=== PATIENT | male | born 1960 | race Caucasian/White ===

== ENCOUNTER 2022-12-05 20:41 | Inpatient (IN) | payer MEDICARE, MEDICAID, SELFPAY ==
--- NOTE | ~2022-12-05 | CT_ITS ---
EXAMINATION: CT CHEST WITHOUT CONTRAST CT ABDOMEN AND PELVIS WITH CONTRAST CLINICAL INFORMATION: Short of breath. Distended abdomen. COMPARISON: None. TECHNIQUE: Multidetector volumetric imaging was performed through the chest without contrast. Multidetector volumetric imaging of the abdomen and pelvis was then performed after administration of 85 mL of Omnipaque 350 IV contrast. Sagittal and coronal reformatted images were obtained on the technologist's workstation. Axial MIP volume rendering provided. This CT examination was performed using dose optimization techniques as appropriate, variously including the following: *Automated exposure control *Adjustment of mA and/or kV according to patient size (this includes techniques or standardized protocols for targeted exams where dose is matched to indication/reason for exam; i.e. extremities or head) *Use of iterative reconstruction technique DLP: 887 mGy-cm. FINDINGS: CHEST: Lungs: The central airways are patent. Small right pleural effusion. Dependent opacity at the left base. Suture line in the lingula. No pneumothorax. Mediastinum: The heart is of enlarged. There is no pericardial effusion. Dilated main pulmonary artery measures 4.1 cm transverse. No hilar or mediastinal lymphadenopathy. Coronary Artery Calcification: Mild. Chest Wall/Axilla: No lymphadenopathy. No chest wall mass. Mild anasarca. ABDOMEN/PELVIS: Liver, Gallbladder, Biliary Tree: The liver is normal in size, shape, and attenuation. No focal hepatic lesion or biliary ductal dilatation is present. The gallbladder is unremarkable with no evidence of radiopaque gallstones, gallbladder wall thickening, or pericholecystic inflammatory changes. Pancreas: Moderate atrophy with no focal abnormality. Spleen: Unremarkable. Adrenal Glands: Unremarkable. Kidneys and Ureters: The kidneys are normal in size, shape, and attenuation. No hydronephrosis, hydroureter or calculi seen. Mild symmetric perinephric stranding. Bladder: Unremarkable. Gastrointestinal Tract: The stomach and small bowel appear unremarkable. No dilated loops of bowel or evidence of obstruction. No diverticulosis. No colonic wall thickening or adjacent inflammatory changes. No free air or free fluid. The appendix is unremarkable. Abdominal Wall: No hernia is demonstrated. Mild anasarca. Lymphovascular Structures: Lymph nodes: Normal. Vascular: Normal caliber aorta with mild atherosclerotic calcification. Pelvic Viscera: The prostate and seminal vesicles are unremarkable. OSSEOUS STRUCTURES: No suspicious sclerotic or lytic bone lesions are identified. Mild degenerative changes of the spine, particularly at the lower lumbar spine. Mild degenerative change in both hips. Chronic osseous fusion involving the lateral aspect of the left third, fourth, and fifth ribs. CT/CT abdomen pelvis w IV con IMPRESSION: 1. No acute findings in the chest, abdomen, or pelvis. 2. Small right pleural effusion. Dependent opacity at the left base may represent atelectasis. 3. Cardiomegaly. Dilated main pulmonary artery suggestive of pulmonary artery hypertension.
--- NOTE | ~2022-12-05 | XR_ITS ---
EXAMINATION: XR CHEST CLINICAL INFORMATION: Shortness of breath COMPARISON: None available. TECHNIQUE: Frontal view of the chest was obtained. FINDINGS: Surgical sutures overlying the left midlung and suture overlying the left upper cardiac border. AP film but cardiac enlargement is suspected. Ill-definition of the hilar structures with opacities radiating into the lung wilkins. Findings would be consistent with vascular congestion/early CHF No significant effusion. XR/XR chest 1V IMPRESSION: No films to compare. Findings may well be consistent with early CHF
[2022-12-05 21:06] VITALS: BP 193/108; PULSE 107; RESP 22; TEMP 36.6; O2SAT 97; BMI 29.0
--- NOTE | 2022-12-05 21:11 | ECG_ITS ---
Test Reason : SOB Blood Pressure : / mmHG Vent. Rate : 091 BPM Atrial Rate : 091 BPM P-R Int : 160 ms QRS Dur : 104 ms QT Int : 384 ms P-R-T Axes : 079 -67 075 degrees QTc Int : 472 ms Normal sinus rhythm Left anterior fascicular block Minimal voltage criteria for LVH, may be normal variant ( [place] product ) Abnormal ECG No previous ECGs available Referred By: Generic ED Physician Electronically Signed By:EDUIN SAMANO MD
[2022-12-05 21:30] LABS: MANUAL DIFF FLAG NO
[2022-12-05 21:35] LABS: Basophils Percent Auto 0.3 % (0-2); Eosinophils Absolute Auto 0.2 X10*3/uL (0.0-0.4); Eosinophils Percent Auto 2.8 % (0-4); Hematocrit 37.7 % (42.0-52.0); Hemoglobin 12.5 g/dl (14.0-18.0); Imm Gran Abs Auto 0.02 X10*3/uL (0.00-0.03); Imm Gran Pct Auto 0.3 % (0.0-0.4); Lymphocytes Absolute Auto 1.5 X10*3/uL (1.2-4.9); Lymphocytes Percent Auto 19.8 % (20-40); Mean Corpuscular HGB Conc 33.2 g/dl (31.0-36.0); Mean Corpuscular Hemoglobin 30.3 pg (27.0-33.0); Mean Corpuscular Volume 91.5 fL (80.0-98.0); Monocytes Absolute Auto 0.5 X10*3/uL (0.1-1.2); Monocytes Percent Auto 6.6 % (2-11); Neutrophils Absolute Auto 5.2 x10*3/uL (2.0-8.3); Neutrophils Percent Auto 70.2 % (45-73); Platelet Count 161 X10*3/uL (160-400); Red Blood Count 4.12 X10*6/uL (4.60-5.80); Red Cell Distribution Width 13.3 % (11.0-16.0); White Blood Count 7.4 X10*3/uL (4.8-10.8)
[2022-12-05 21:50] LABS: Alanine Aminotransferase 24 U/L (0-40); Albumin Level 4.1 g/dL (3.5-5.0); Alkaline Phosphatase 85 U/L (39-117); Anion Gap 13 (12-20); Aspartate Amino Transferase 19 U/L (5-37); Bilirubin Total 0.8 mg/dL (0.0-1.0); Blood Urea Nitrogen 13 mg/dL (9-16); Carbon Dioxide 28 mmol/L (22-29); Chloride 103 mmol/L (96-108); Creatinine Clr Calc Pharmacy 69.3; Estimated Glomerular Filt Rate > 60; Glucose Random 221 mg/dL (60-115); Potassium 4.4 mmol/L (3.3-5.1); Sodium 140 mmol/L (135-145); Total Protein 5.9 g/dL (6.5-8.0)
[2022-12-05 21:54] LABS: INTERNATIONAL NORM RATIO 1.2 (0.9-1.1); Prothrombin Time 13.3 SEC (10.0-13.1)
[2022-12-05 21:56] LABS: B Type Natriuretic Peptide 2472 pg/mL (<100)
[2022-12-05 21:57] LABS: Troponin-I High Sensitivity 34.9 ng/L (<3.5-35.0)
--- NOTE | 2022-12-05 22:45 | ED.GENADULT ---
HPI - General Adult General Chief complaint: General Medical Stated complaint: abd pain,roz. 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 moved from [place] a 1 year ago has not taken any medication for more than 6 months has not seen any PCP complaining of increased shortness of breath and leg swelling for last few days coughing with pinkish color phlegm for last few days denies any chest pain feel constipated on arrival blood pressure was 193/108 pulse rate 107 patient is supposed to be on gabapentin clonidine ,Lopressor, Cardizem hydrochlorothiazide and metformin Related Data Allergies Allergy/AdvReac Type Severity Reaction Status Date / Time No Known Allergies Allergy Verified 12/05/22 21:05 Review of Systems Review of Systems: Constitutional : No Weight loss, No Fever, No Chills ENT/Mouth : No sore throat, No Rhinorrhea Eyes: No Eye Pain, No Swelling Cardiovascular : No Chest Pain, no palpitations Respiratory : + Cough, + Sputum, + shortness of breath Gastrointestinal : no Nausea, No Vomiting, No Diarrhea, No abdominal Pain, no black stools Genitourinary : No Dysuria, No Urinary Frequency Musculoskeletal : No joint pain, No Myalgias, No Joint Swelling Skin : No Skin Lesions, No rash Neuro : No Weakness, No Numbness, No Dizziness, No Headache Psych : No Anxiety/Panic, No Depression Heme/Lymph: No Bruising, No Lymphadenopathy Endocrine : No Polyuria, No Polydipsia All other systems reviewed and are negative Yes all other systems are reviewed and are negative [facility] Social History Social History Patient Tobacco Use Status: Current everyday Tobacco user Smoked in Last 30 Days: Yes Use of substances other than those prescribed or required for medical reasons: No Advance Directives: No Advance Directives Information Provided: No Nutrition Risks: No Nutritional Risk Physical Exam ED Vital Signs: Vital Signs - 24 hr 12/05/22 21:06 12/05/22 23:14 12/05/22 23:32 Temperature 97.9 F Pulse Rate 107 H 70 68 Respiratory Rate 22 H 22 H 28 H Blood Pressure 193/108 H 194/112 H 158/98 H Pulse Oximetry 97 94 98 Oxygen Delivery Method Room Air Room Air Room Air 12/05/22 23:47 Temperature 98.2 F Pulse Rate 69 Respiratory Rate 14 Blood Pressure 149/99 H Pulse Oximetry 97 Oxygen Delivery Method Room Air BMI result Body Mass Index 29.0 Appearance: Alert. Oriented X3. No acute distress. Eyes: No pallor or icterus ENT: Pharynx normal. Oral Mucosa moist Neck: Normal inspection. Neck supple. CVS: Normal heart rate and rhythm. Pansystolic murmur at midsternal area? VSD, Pulses normal. Respiratory: Mild respiratory distress. Equal air entry bilateral, bilateral rales in the bases prolonged expiration with wheezing Abdomen: Soft gaseous distended and nontender. Bowel sounds are present, no mass palpable, no CVA tenderness Skin: Skin warm and dry. Normal skin color. Normal skin turgor. Extremities: 2+ lower extremity edema. No calf tenderness Neuro: Oriented X 3. No motor deficit. No sensory deficit.No cerebellar signs , cranial nerves II-XII intact Medications Administered Generic Name Dose Route Start Last Admin Trade Name Freq PRN Reason Stop Dose Admin Acetaminophen 650 mg 12/06/22 02:10 12/06/22 05:22 Acetaminophen 325 Mg Tablet PO 650 mg Q6H PRN Administration Pain, Mild (Pain Scale 1-3) Hydralazine HCl 5 mg 12/06/22 04:05 12/06/22 04:11 Hydralazine Hcl 20 Mg/Ml Vial IVPUSH 5 mg Q4H PRN Administration sbp>180,dbp1>100 Protocol Discontinued Medications Generic Name Dose Route Start Last Admin Trade Name Freq PRN Reason Stop Dose Admin Diphenhydramine HCl 50 mg 12/06/22 04:05 12/06/22 04:12 Diphenhydramine Hcl 25 Mg Capsule PO 12/06/22 04:06 50 mg ONCE ONE Administration Furosemide 40 mg 12/05/22 23:02 12/05/22 23:08 Furosemide 40 Mg/4 Ml Vial IVPUSH 12/05/22 23:03 40 mg ONCE ONE Administration Protocol Iohexol 85 ml 12/06/22 01:06 12/06/22 01:07 Iohexol 350 Mg/Ml 100 Ml Infus..Btl IV 12/06/22 01:07 85 ml ONCE ONE Administration Labetalol HCl 20 mg 12/05/22 23:02 12/05/22 23:09 Labetalol Hcl 100 Mg/20 Ml Vial IVPUSH 12/05/22 23:03 20 mg ONCE ONE Administration Labetalol HCl 10 mg 12/06/22 04:53 12/06/22 05:02 Labetalol Hcl 100 Mg/20 Ml Vial IVPUSH 12/06/22 04:54 10 mg ONCE ONE Administration Nitroglycerin 1 inch 12/05/22 23:33 12/05/22 23:38 Nitroglycerin 2 % Oint 1 Gm Packet TRANSDERMA 12/05/22 23:34 1 inch ONCE ONE Administration Medical Decision Making Medical Decision Making MDM Narrative: Patient noncompliant to medications with accelerated hypertension and CHF with history of substance abuse will admit patient for IV diuresis and blood pressure control Consult Healthcare Provider Management of the patient was discussed with: Hospitalist Lab Data MDM Lab Attestation statement: I reviewed the patient's lab results. 12/05/22 21:25 12/05/22 21:25 Labs: Lab Results 12/05/22 12/05/22 12/05/22 Range/Units 21:25 21:25 21:25 WBC 7.4 (4.8-10.8) X10*3/uL RBC 4.12 L (4.60-5.80) X10*6/uL Hgb 12.5 L (14.0-18.0) g/dl Hct 37.7 L (42.0-52.0) % MCV 91.5 (80.0-98.0) fL MCH 30.3 (27.0-33.0) pg MCHC 33.2 (31.0-36.0) g/dl RDW 13.3 (11.0-16.0) % Plt Count 161 (160-400) X10*3/uL MPV 12.0 (9.4-12.4) fL Immature Gran % (Auto) 0.3 (0.0-0.4) % Neut % (Auto) 70.2 (45-73) % Lymph % (Auto) 19.8 L (20-40) % [place] % (Auto) 6.6 (2-11) % Eos % (Auto) 2.8 (0-4) % Baso % (Auto) 0.3 (0-2) % Lymph # (Auto) 1.5 (1.2-4.9) X10*3/uL [place] # (Auto) 0.5 (0.1-1.2) X10*3/uL Eos # (Auto) 0.2 (0.0-0.4) X10*3/uL Baso # (Auto) 0.0 (0.0-0.2) X10*3/uL Abs Immat Gran (auto) 0.02 (0.00-0.03) X10*3/uL Absolute Neuts (auto) 5.2 (2.0-8.3) x10*3/uL Absolute Nucleated RBC 0.000 (0.0-0.012) X10*3/uL Nucleated RBC % (auto) 0.0 (0.0-0.2) /100WBC PT 13.3 H (10.0-13.1) SEC INR 1.2 H (0.9-1.1) Sodium 140 (135-145) mmol/L Potassium 4.4 (3.3-5.1) mmol/L Chloride 103 (96-108) mmol/L Carbon Dioxide 28 (22-29) mmol/L Anion Gap 13 (12-20) BUN 13 (9-16) mg/dL Creatinine 1.08 (0.5-1.4) mg/dL Estim Creat Clear Calc 69.3 Estimated GFR > 60 Random Glucose 221 H (60-115) mg/dL Calcium 9.0 (8.4-10.2) mg/dL Total Bilirubin 0.8 (0.0-1.0) mg/dL AST 19 (5-37) U/L ALT 24 (0-40) U/L Alkaline Phosphatase 85 (39-117) U/L Troponin I High Sens (<3.5-35.0) ng/L B-Natriuretic Peptide (<100) pg/mL Total Protein 5.9 L (6.5-8.0) g/dL Albumin 4.1 (3.5-5.0) g/dL COVID-19 ([facility]) (Negative) COVID-19 Clin Com 12/05/22 12/05/22 12/05/22 Range/Units 21:25 21:25 23:16 WBC (4.8-10.8) X10*3/uL RBC (4.60-5.80) X10*6/uL Hgb (14.0-18.0) g/dl Hct (42.0-52.0) % MCV (80.0-98.0) fL MCH (27.0-33.0) pg MCHC (31.0-36.0) g/dl RDW (11.0-16.0) % Plt Count (160-400) X10*3/uL MPV (9.4-12.4) fL Immature Gran % (Auto) (0.0-0.4) % Neut % (Auto) (45-73) % Lymph % (Auto) (20-40) % [place] % (Auto) (2-11) % Eos % (Auto) (0-4) % Baso % (Auto) (0-2) % Lymph # (Auto) (1.2-4.9) X10*3/uL [place] # (Auto) (0.1-1.2) X10*3/uL Eos # (Auto) (0.0-0.4) X10*3/uL Baso # (Auto) (0.0-0.2) X10*3/uL Abs Immat Gran (auto) (0.00-0.03) X10*3/uL Absolute Neuts (auto) (2.0-8.3) x10*3/uL Absolute Nucleated RBC (0.0-0.012) X10*3/uL Nucleated RBC % (auto) (0.0-0.2) /100WBC PT (10.0-13.1) SEC INR (0.9-1.1) Sodium (135-145) mmol/L Potassium (3.3-5.1) mmol/L Chloride (96-108) mmol/L Carbon Dioxide (22-29) mmol/L Anion Gap (12-20) BUN (9-16) mg/dL Creatinine (0.5-1.4) mg/dL Estim Creat Clear Calc Estimated GFR Random Glucose (60-115) mg/dL Calcium (8.4-10.2) mg/dL Total Bilirubin (0.0-1.0) mg/dL AST (5-37) U/L ALT (0-40) U/L Alkaline Phosphatase (39-117) U/L Troponin I High Sens 34.9 (<3.5-35.0) ng/L B-Natriuretic Peptide 2472 H (<100) pg/mL Total Protein (6.5-8.0) g/dL Albumin (3.5-5.0) g/dL COVID-19 ([facility]) Negative (Negative) COVID-19 Clin Com See Note Discharge Plan Discharge Clinical Impression: Congestive heart failure, Accelerated essential hypertension Patient Disposition: Admitted As Inpatient
[2022-12-05] MEDS: Furosemide 40 MG/4 ML VIAL IVPUSH (23:08)
[2022-12-05] MEDS: Labetalol HCL 100 MG/20 ML VIAL 20 MG IVPUSH (23:09)
[2022-12-05 23:14] VITALS: BP 194/112; PULSE 70; RESP 22; O2SAT 94
--- NOTE | 2022-12-05 23:15 | PC.NURSE ---
Pt aox3 resting at the bedside. Breaths are even regular and labored. RR 22 with o2 sat 95%. NSR on monitor with hr 70. BP 194/112. Abd distended soft and non tender. Bilateral lower extremity edema present. IV line started with 20G on the R AC. Medicated as ordered. Tolerated well. Pt aware of plan of care.
[2022-12-05 23:32] VITALS: BP 158/98; PULSE 68; RESP 28; O2SAT 98
--- NOTE | 2022-12-05 23:33 | PC.NURSE ---
Pt aox3 reports improved breathing. O2 sat 98%, RR 18bpm. NSR on monitor with hr 70. BP improvement 158/98. Will continue to monitor.
[2022-12-05 23:34] LABS: COVID-19 Test Negative (Negative); IDNOW Serial# BCCEAD1C
[2022-12-05] MEDS: Nitroglycerin 2 % Oint 1 GM Packet 1 INCH TRANSDERMA (23:38)
[2022-12-05 23:47] VITALS: BP 149/99; PULSE 69; RESP 14; TEMP 36.8; O2SAT 97
[2022-12-06] VITALS (11 sets, daily range): BP systolic 154–183; BP diastolic 73–116; PULSE 76–85; RESP 15–23; TEMP 36.6–37.1; O2SAT 93–99
[2022-12-06] MEDS: iohexoL 350 MG/ML 100 ML INFUS..BTL 85 ML IV (01:07)
--- NOTE | 2022-12-06 04:07 | PC.NURSE ---
Live text sent to Dr. Bear regarding pts BP reading of 175/109 with hr 79 and pt wanting something for sleep. New orders placed in NOV. Pt aware of plan of care.
[2022-12-06] MEDS: hydrALAZINE HCl 20 MG/ML VIAL 5 MG IVPUSH (04:11)
[2022-12-06] MEDS: diphenhydrAMINE HCL 25 MG CAPSULE 50 MG PO (04:12)
--- NOTE | 2022-12-06 04:17 | PC.NURSE ---
Pt medicated as ordered and tolerated well. 1650cc of clear yellow urine emptied from urinals.
[2022-12-06] MEDS: Labetalol HCL 100 MG/20 ML VIAL 10 MG IVPUSH (05:02)
--- NOTE | 2022-12-06 05:21 | PC.NURSE ---
Live text sent to Dr Bear regarding pts increased BP. New orders placed in NOV. Pt medicated and tolerated well. Will continue to monitor.
[2022-12-06] MEDS: Acetaminophen 325 MG TABLET 650 MG PO ×2 (05:22→23:25)
--- NOTE | 2022-12-06 06:22 | PC.NURSE ---
[place] text sent to Dr Bear regarding pts BP and pain. Pending new orders. Pt aware.
--- NOTE | 2022-12-06 06:35 | P.HPHOSP_ITS ---
History of Present Illness Date of Service: 12/06/22 Chief Complaint: Swelling, shortness of breath This is a 62-year-old [place]-speaking male with past medical history of congestive heart failure? Presents to the hospital with complaints of shortness of breath. 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 When asked about the reason for his presentation to the ED he states that he has been short of breath. His daughter at bedside explained to the ED physician that he moved from [place] about a year ago, has not taking any of his medications for about 6-8 months, has not followed up with any PCP. He has progressively gotten short of breath over the last few weeks, has lower extremity swelling, cough that is tinged pink, denies any fever or chills, no urinary symptoms, no abdominal pain nausea or vomiting, no diarrhea constipation, On arrival to the ED patient hemodynamically stable with a heart rate of 107, respiratory rate of 22, blood pressure of 193/108 Labs are significant for WBC count 7.4, hemoglobin of 12.5, hematocrit 37.7, BNP of 2472, troponin 34.9 Chest as well as abdomen and pelvis CT shows no acute findings in the chest abdomen or pelvis, small right pleural effusion, dependent opacity may represent atelectasis. There is also cardiomegaly and pulmonary hypertension Review of Systems Review of Systems: Yes all other systems are reviewed and are negative [facility] Medical History (Updated 12/06/22 @ 06:45 by Adriana Bear MD) History of congestive heart failure Social History Patient Tobacco Use Status: Current everyday Tobacco user Smoked in Last 30 Days: Yes Use of substances other than those prescribed or required for medical reasons: No Advance Directives: No Advance Directives Information Provided: No Nutrition Risks: No Nutritional Risk Meds Allergies Allergy/AdvReac Type Severity Reaction Status Date / Time No Known Allergies Allergy Verified 12/05/22 21:05 Active Medications: Current Medications Acetaminophen (Acetaminophen 325 Mg Tablet) 650 mg PO Q6H PRN PRN Reason: Pain, Mild (Pain Scale 1-3) Last Admin: 12/06/22 05:22 Dose: 650 mg Docusate Sodium (Docusate Sodium 100 Mg Capsule) 100 mg PO DAILY PRN PRN Reason: Constipation Hydralazine HCl (Hydralazine Hcl 20 Mg/Ml Vial) 5 mg IVPUSH Q4H PRN; Protocol PRN Reason: sbp>180,dbp1>100 Last Admin: 12/06/22 04:11 Dose: 5 mg Ondansetron HCl (Ondansetron Hcl 4 Mg/2 Ml Vial) 4 mg IVPUSH Q8H PRN PRN Reason: Nausea and Vomiting Sodium Chloride (0.9 % Sodium Chloride Flush 3 Ml Syringe) 3 ml IVFLUSH QSHIFT [facility] Physical Exam Vital Signs and Narrative: Vital Signs: Last Vital Signs Temp 98.1 F 12/06/22 06:11 Pulse 76 12/06/22 06:11 Resp 23 H 12/06/22 06:11 BP 166/111 H 12/06/22 06:11 Pulse Ox 99 12/06/22 06:11 O2 Del Method Room Air 12/06/22 06:11 BMI result Body Mass Index 29.0 Const: Other: ill appearing General: cooperative and no acute distress Orientation/consciousness: patient oriented x3 Eyes: General: appearance normal, both eyes and all related structures Resp: Effort & Inspection: normal respiratory effort Auscultation: clear to auscultation bilaterally Cardio: Rate: regular rate Rhythm: regular rhythm GI: Other: Abdomen distended, no rebound or guarding Palpation (GI): Soft to palpation Auscultation: normal bowel sounds Skin: General skin exam: no rashes or lesions noted Neuro: General: patient oriented x3 Cognition (Neuro): normal cognition Extrem: Other: 2+ or extremity edema General: Yes normal to inspection Results Labs 12/05/22 21:25 12/05/22 21:25 Labs: Laboratory Results - last 24 hr 12/05/22 12/05/22 12/05/22 21:25 21:25 21:25 MCV 91.5 MCH 30.3 MCHC 33.2 RDW 13.3 Plt Count 161 MPV 12.0 Immature Gran % (Auto) 0.3 Neut % (Auto) 70.2 Lymph % (Auto) 19.8 L [place] % (Auto) 6.6 Eos % (Auto) 2.8 Baso % (Auto) 0.3 Lymph # (Auto) 1.5 [place] # (Auto) 0.5 Eos # (Auto) 0.2 Baso # (Auto) 0.0 Abs Immat Gran (auto) 0.02 Absolute Neuts (auto) 5.2 Absolute Nucleated RBC 0.000 Nucleated RBC % (auto) 0.0 PT 13.3 H INR 1.2 H Anion Gap 13 Estim Creat Clear Calc 69.3 Estimated GFR > 60 Random Glucose 221 H Calcium 9.0 Total Bilirubin 0.8 AST 19 ALT 24 Alkaline Phosphatase 85 Troponin I High Sens B-Natriuretic Peptide Total Protein 5.9 L Albumin 4.1 COVID-19 ([facility]) COVID-19 Clin Com 12/05/22 12/05/22 12/05/22 21:25 21:25 23:16 MCV MCH MCHC RDW Plt Count MPV Immature Gran % (Auto) Neut % (Auto) Lymph % (Auto) [place] % (Auto) Eos % (Auto) Baso % (Auto) Lymph # (Auto) [place] # (Auto) Eos # (Auto) Baso # (Auto) Abs Immat Gran (auto) Absolute Neuts (auto) Absolute Nucleated RBC Nucleated RBC % (auto) PT INR Anion Gap Estim Creat Clear Calc Estimated GFR Random Glucose Calcium Total Bilirubin AST ALT Alkaline Phosphatase Troponin I High Sens 34.9 B-Natriuretic Peptide 2472 H Total Protein Albumin COVID-19 ([facility]) Negative COVID-19 Clin Com See Note Imaging Radiologist's Impressions: Impressions Chest X-Ray 12/05/22 21:40 IMPRESSION: No films to compare. Findings may well be consistent with early CHF Abdomen/Pelvis CT 12/06/22 01:10 IMPRESSION: 1. No acute findings in the chest, abdomen, or pelvis. 2. Small right pleural effusion. Dependent opacity at the left base may represent atelectasis. 3. Cardiomegaly. Dilated main pulmonary artery suggestive of pulmonary artery hypertension. Chest CT 12/06/22 01:10 IMPRESSION: 1. No acute findings in the chest, abdomen, or pelvis. 2. Small right pleural effusion. Dependent opacity at the left base may represent atelectasis. 3. Cardiomegaly. Dilated main pulmonary artery suggestive of pulmonary artery hypertension. Assessment and Plan (1) Acute exacerbation of CHF (congestive heart failure): Status: Acute (2) Accelerated essential hypertension: Status: Acute Plan This is a 62-year-old male with noncompliance with his medication, not known past medical history presents the hospital with complaints of shortness of breath found to have CHF exacerbation as well as elevated blood pressure # acute CHF exacerbation - has dyspnea, evidence of pleural effusion, as well as elevated BNP -has not been compliant with his medications for over 6 months - will start him on IV Lasix, strict I&O, low-sodium diet - echocardiogram - cardiology consulted # hypertensive emergency - in the setting of acute CHF exacerbation - started on nitro paste, p.r.n. hydralazine, received multiple doses of labetalol - cardiology consulted - does not know his home medications, this time will start him on lisinopril, continue p.r.n. hydralazine, as well as nitropaste - continue nitro paste, prn hydralazine DVT prophylaxis: Lovenox Given patient's acute CHF exacerbation patient required minimum 2 nights inpatient hospital stay for further management and monitoring Time Spent With Patient Time: Total time managing care of this patient today ____ minutes. Quality Stroke Does the patient have a stroke diagnosis?: No VTE Prior VTE?: No VTE Risk Level:: Medical - moderate - high VTE Device Contraindication: N/A - Device Ordered VTE Drug Contraindication: Treatment Not Indicated
[2022-12-06] MEDS: guaiFENesin DM 100/10/5 ML 5 ML SYRUP PO (06:41)
[2022-12-06] MEDS: Morphine Sulfate 4 MG/ML CARTRIDGE IVPUSH (06:41)
--- NOTE | 2022-12-06 06:46 | PC.NURSE ---
Medicated pt as ordered for pain. Tolerated well. Called the pharmacy to bring down the nitro patch ordered as it is not in the pyxis. Pt aware of plan of care.
--- NOTE | 2022-12-06 07:00 | CA_ITS ---
Transthoracic Echocardiogram Patient (Last, First, Middle): Osmel Ng, Gender: Male Date of : 1960 Age: 62 Procedure Date: 12/06/2022 Procedure Type: Transthoracic Echocardiogram Location: ER Height: 167.64 cm Weight: 81.65 kg BSA: 1.91 m2 Heart Rate: 75 bpm BP: 165 / 85 mmHg Public Health Outreach Worker: ANCELMO Cerna MD: Adriana Bear MD Branch Officer: Joseph Duran MD Symptoms: chf Study Quality: Adequate ECG Rhythm: Sinus Conclusions: - 1. Severe LV systolic dysfunction with LVEF of 25-30% with moderate LVH and grade 3 diastolic dysfunction 2. Moderately dilated right ventricle with severe systolic dysfunction 3. Severe left atrial enlargement 4. Mild mitral regurgitation 5. Moderately elevated at work a systolic pressure with significant elevated right atrial pressures 6. No gross pericardial effusion 7. Mildly dilated ascending aorta at 4 cm Findings Left Ventricle Normal left ventricular cavity size. There is moderately increased left ventricular wall thickness. The left ventricular systolic function is severely decreased. The visually estimated ejection fraction is between 25 30%. There is paradoxical septal motion consistent with post-operative status. Spectral Doppler is indicative of a restrictive filling pattern. E/E prime ratio is >15, consistent with elevated filling pressures. Evidence suggests grade III (severe) diastolic dysfunction. Right Ventricle Moderately increased right ventricular cavity size. There is severely decreased right ventricular systolic function. Atria The left atrium is severely dilated. There is no evidence of interatrial shunt. The right atrium is moderately dilated. Aortic Valve There is mild thickening of the aortic valve. There is no aortic valve stenosis. There is no aortic valve regurgitation. Mitral Valve There is mild anterior and posterior mitral leaflet thickening. There is mild mitral valve regurgitation. There is no mitral valve stenosis. Pulmonic Valve The pulmonic valve is likely normal. There is mild pulmonic valve regurgitation. Tricuspid Valve Normal tricuspid valve structure. There is mild tricuspid valve regurgitation. Significantly elevated right atrial pressure. Moderate pulmonary hypertension is present. Great Vessels The pulmonary artery was not well visualized. There is mild dilatation of the ascending aorta measuring 4.00 cm. Venous The inferior vena cava is moderately dilated and does not collapse with inspiration. Pericardium/Pleural There is no evidence of pericardial effusion. Prior Study Comparison No prior study available for comparison. Measurements 2D Linear Measurements IVSd: 1.35 0.6-0.9/0.6-1.0 cm LVIDd: 5.53 3.9-5.3/4.2-5.9 cm LVIDd Index: 2.90 2.4-3.2/2.2-3.1 cm/m2 LVIDs: 4.51 2.0-3.6 cm LVPWd: 1.50 0.7-1.1 cm LA Diam: 4.50 2.7-3.8/3.0-4.0 cm LAIDs Index: 2.36 1.5-2.3 cm/m2 LV Mass: 436.14 67-162/88-224 g LV Mass Index: 228.35 43-95/49-115 g/m2 LVOT Diam: 2.20 3.0+(-)1.3 cm 2D Systolic Function EF 4C: 33.10 >55% EF 2C: 25.30 >55% EF BiP: 29.60 >55% Mitral Valve MV Pk E: 1.36 MV PK A: 0.37 MV Decel Time: 121.00 E/A: 3.70 E'Lateral: 5.43 E'Medial: 3.33 E/E' Med: 40.80 E/E' Lat: 25.00 PHT: 35.00 MVA PHT: 6.29 Decel [place]: 11.21 Aortic Valve AoV Pk Sreekanth: 1.34 AoV Mn Sreekanth: 0.90 AoV VTI: 0.23 AoV Pk Grad: 7.00 Aov Mn Grad: 4.00 ISMAEL Cont.VTI: 2.34 LVOT LVOT Pk Sreekanth: 0.92 LVOT Mn Sreekanth: 0.59 LVOT VTI: 0.14 LVOT Pk Grad: 3.00 LVOT Mn Grad: 2.00 LVOT Diam: 2.20 LVOT Area: 3.80 Diastolic Function MV Pk E: 1.36 MV Pk A: 0.37 E/A: 3.70 E'Medial: 3.33 E/E' Med: 40.80 E' Laterial: 5.43 E/E' Lat: 25.00 Right Ventricle TAPSE (mm): 9.66 TVS' Sreekanth: 6.25 Tricuspid Valve TR Pk Sreekanth: 3.04 TR Pk Grad: 37.00 RA Press: 15.00 RVSP: 52.00 Great Vessels Aorta Sinus of Valsalva: 3.70 2.0-3.5 cm Ao Asc: 4.00 2.1-3.4 cm Pulmonary Valve PV Pk Sreekanth: 1.27 Peak PV Grad: 6.00 Updated in Other Vendor System with Status of Final Joseph Duran MD electronically signed on 12/06/2022 2:37:40 PM with status of Final
[2022-12-06 07:11] LABS: Alanine Aminotransferase 25 U/L (0-40); Alkaline Phosphatase 89 U/L (39-117); Anion Gap 15 (12-20); Aspartate Amino Transferase 17 U/L (5-37); Blood Urea Nitrogen 13 mg/dL (9-16); Calcium 9.2 mg/dL (8.4-10.2); Carbon Dioxide 28 mmol/L (22-29); Chloride 101 mmol/L (96-108); Creatinine Clr Calc Pharmacy 81.3; Estimated Glomerular Filt Rate > 60; Glucose Random 170 mg/dL (60-115); Potassium 4.3 mmol/L (3.3-5.1); Sodium 140 mmol/L (135-145)
[2022-12-06] MEDS: Enoxaparin Sodium 40 MG/0.4 ML SYRINGE SUBCUT (07:22)
[2022-12-06] MEDS: lisinopriL 20 MG TABLET PO (07:22)
[2022-12-06] MEDS: Nitroglycerin 0.4 MG PATCH.TD24 TRANSDERMA (07:22)
[2022-12-06] MEDS: 0.9 % Sodium Chloride Flush 3 ML SYRINGE IVFLUSH ×3 (07:22→20:51)
[2022-12-06 09:44] LABS: Troponin-I High Sensitivity 31.9 ng/L (<3.5-35.0)
[2022-12-06] MEDS: Furosemide 40 MG/4 ML VIAL IVPUSH ×2 (10:30→18:15)
--- NOTE | 2022-12-06 11:03 | P.EN_ITS ---
Event Note Date of Service: 12/06/22 Event Note: Day hospitalist update S: This history was taken in Lao from the patient. Patient has not had medical care nor taken medications since moving here from [place] over a year ago. Dyspnea improved. Negative -3L thus far No chest pain O: Temp Pulse Resp BP Pulse Ox O2 Del Method 98.1 F 76 16 168/107 H 98 Room Air 12/06/22 06:11 12/06/22 07:53 12/06/22 07:53 12/06/22 07:53 12/06/22 07:53 12/06/22 07:53 Gen: in no acute distress HEENT: sclera anicteric, moist mucus membranes Neck: supple Lungs: diminished at bases bilaterally Heart: regular rate and rhythm, no murmurs Abd: soft, non-tender, non-distended Ext: no edema Skin: warm/well-perfused Neuro: alert and oriented x3, no focal findings Psych: appropriate affect Labs: K 4.3, SCr 0.92, hs-Tn-I 32 A/P: hospital day#1 62yo M with hx CHF, unknown EF, HTN, and DM2 who has not had medical care for over a year presenting with dyspnea, admitted for ADHF # ADHF - continue IV furosemide. Cardiology consultation + TTE. Monitor weight, I/O, BNP, lytes. - lisinopril started. B-sheyla once euvolemic. # HTN urgency - lisinopril, nitropaste, B-sheyla once euvolemic # DM2 - A1c, correction-dose lispro # VTE ppx: LMWH # dispo: TBD In my clinical judgment, the patient requires continued inpatient hospitalization for the following reasons: IV diuresis Time Spent With Patient Time: Total time managing care of this patient today __35__ minutes.
[2022-12-06 11:37] LABS: Estimated Average Glucose 134 mg/dL; Hemoglobin A1c % 6.3 %
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
[2022-12-06 13:15] LABS: Glucose, Whole Blood 146 mg/dL (60-115)
--- NOTE | 2022-12-06 13:17 | PC.NURSE ---
pharmacy called for Valsartan
[2022-12-06] MEDS: Spironolactone 25 MG TABLET 12.5 MG PO (13:19)
[2022-12-06] MEDS: Valsartan 40 MG TABLET PO ×2 (14:46→20:48)
[2022-12-06 16:24] LABS: Glucose, Whole Blood 143 mg/dL (60-115)
[2022-12-06 20:03] LABS: Glucose, Whole Blood 170 mg/dL (60-115)
[2022-12-06] MEDS: Insulin Lispro 100 UNIT/ML 3 ML VIAL SUBCUT (20:48)
[2022-12-07 03:36] VITALS: BP 164/98; PULSE 82; RESP 20; TEMP 36.8; O2SAT 94
[2022-12-07] MEDS: Enoxaparin Sodium 40 MG/0.4 ML SYRINGE SUBCUT (05:26)
--- NOTE | 2022-12-07 07:38 | PHA.MEDREC ---
Pharmacy Consult ? Medication Reconciliation Pharmacy has completed the medication reconciliation.
[2022-12-07 07:44] VITALS: BP 164/94; PULSE 84; RESP 20; TEMP 36.4; O2SAT 95
[2022-12-07 07:44] LABS: Hematocrit 39.1 % (42.0-52.0); Hemoglobin 13.4 g/dl (14.0-18.0); Mean Corpuscular HGB Conc 34.3 g/dl (31.0-36.0); Mean Corpuscular Hemoglobin 31.4 pg (27.0-33.0); Mean Corpuscular Volume 91.6 fL (80.0-98.0); Mean Platelet Volume 12.2 fL (9.4-12.4); Platelet Count 171 X10*3/uL (160-400); Red Blood Count 4.27 X10*6/uL (4.60-5.80); Red Cell Distribution Width 13.2 % (11.0-16.0); White Blood Count 7.9 X10*3/uL (4.8-10.8)
[2022-12-07 07:58] LABS: Glucose, Whole Blood 154 mg/dL (60-115)
[2022-12-07 08:15] LABS: B Type Natriuretic Peptide 2140 pg/mL (<100)
[2022-12-07 08:20] LABS: Anion Gap 18 (12-20); Blood Urea Nitrogen 13 mg/dL (9-16); Calcium 9.5 mg/dL (8.4-10.2); Carbon Dioxide 29 mmol/L (22-29); Chloride 95 mmol/L (96-108); Estimated Glomerular Filt Rate > 60; Glucose Random 139 mg/dL (60-115); Magnesium 1.7 mg/dL (1.6-2.6); Potassium 3.9 mmol/L (3.3-5.1); Sodium 138 mmol/L (135-145)
[2022-12-07] MEDS: Furosemide 40 MG/4 ML VIAL IVPUSH ×2 (08:27→16:50)
[2022-12-07] MEDS: Insulin Lispro 100 UNIT/ML 3 ML VIAL SUBCUT ×2 (08:28→16:49)
[2022-12-07] MEDS: Spironolactone 25 MG TABLET 12.5 MG PO (08:28)
[2022-12-07] MEDS: 0.9 % Sodium Chloride Flush 3 ML SYRINGE IVFLUSH ×2 (08:28→16:50)
[2022-12-07] MEDS: Nitroglycerin 0.4 MG PATCH.TD24 TRANSDERMA (08:29)
[2022-12-07] MEDS: Valsartan 80 MG TABLET PO ×2 (10:26→21:12)
--- NOTE | 2022-12-07 10:27 | P.PNCA_ITS ---
Subjective Subjective Date of Service: 12/07/22 Principal diagnosis: Decompensated congestive heart failure Interval history: Patient is feeling a lot better. Has been diuresing very well. Blood pressure still remains elevated. Echocardiogram shows severely reduced LV ejection fraction 25-30%. Echo was limited for detection of ventricular septal defect. There is no significant mitral regurgitation aortic stenosis noted. Tolerating his medications. Review of Systems Constitutional: Reports no additional constitutional complaints Cardiovascular: Reports no additional cardiovascular complaints Respiratory: Reports no additional respiratory complaints Endocrine: Reports no additional endocrine complaints Physical Exam Vital Signs: Last Vital Signs Temp 97.6 F 12/07/22 07:44 Pulse 84 12/07/22 07:44 Resp 20 12/07/22 07:44 BP 164/94 H 12/07/22 07:44 Pulse Ox 95 12/07/22 07:44 O2 Del Method Room Air 12/07/22 07:44 BMI result Body Mass Index 29.0 Const General: cooperative, comfortable, no acute distress, alert, awake and in distress moderate and respiratory Nutritional Appearance: overweight Orientation/consciousness: patient oriented x3 Limitations: no limitations HEENT Head: Yes normocephalic and Yes atraumatic Neck Neck: Yes trachea midline, Yes supple and Yes no JVD Resp Effort & Inspection: normal respiratory effort Auscultation: rales bilateral and wheezes Cardio Jugular venous distension: no JVD Palpation: abnormal PMI displaced PMI Rate: regular rate Rhythm: regular rhythm Heart sounds: S1 normal heart sound present, S2 normal heart sound present, no click, no gallops and Murmur heart sound present systolic holo and at the left sternal border GI Auscultation: normal bowel sounds Skin General skin exam: no rashes or lesions noted Neuro General: patient oriented x3 and no focal motor deficits Extrem General: No clubbing, No cyanosis and Yes edema Objective Labs and Meds 12/07/22 07:23 12/07/22 07:23 Lab results: Laboratory Results - last 24 hr 12/05/22 12/06/22 12/06/22 21:25 13:11 16:19 WBC RBC Hgb Hct MCV MCH MCHC RDW Plt Count MPV Absolute Nucleated RBC Nucleated RBC % (auto) Sodium Potassium Chloride Carbon Dioxide Anion Gap BUN Creatinine Estim Creat Clear Calc Estimated GFR POC Glucose 146 H 143 H Random Glucose Estimat Average Glucose 134 Hemoglobin A1c % 6.3 Calcium Magnesium B-Natriuretic Peptide 03/24/23 03/25/23 03/25/23 19:42 07:23 07:23 WBC 7.9 RBC 4.27 L Hgb 13.4 L Hct 39.1 L MCV 91.6 MCH 31.4 MCHC 34.3 RDW 13.2 Plt Count 171 MPV 12.2 Absolute Nucleated RBC 0.000 Nucleated RBC % (auto) 0.0 Sodium 138 Potassium 3.9 Chloride 95 L Carbon Dioxide 29 Anion Gap 18 BUN 13 Creatinine 0.85 Estim Creat Clear Calc 88.0 Estimated GFR > 60 POC Glucose 170 H Random Glucose 139 H Estimat Average Glucose Hemoglobin A1c % Calcium 9.5 Magnesium 1.7 B-Natriuretic Peptide 12/07/22 12/07/22 07:23 07:45 WBC RBC Hgb Hct MCV MCH MCHC RDW Plt Count MPV Absolute Nucleated RBC Nucleated RBC % (auto) Sodium Potassium Chloride Carbon Dioxide Anion Gap BUN Creatinine Estim Creat Clear Calc Estimated GFR POC Glucose 154 H Random Glucose Estimat Average Glucose Hemoglobin A1c % Calcium Magnesium B-Natriuretic Peptide 2140 H Progress Note: A&P Assessment and plan (1) Acute exacerbation of CHF (congestive heart failure): Status: Acute Assessment and Plan: Acute systolic heart failure with severely reduced LV ejection fraction as well as RV systolic function. Blood pressure is still elevated. Increase Diovan to 160 mg b.i.d. and starting tomorrow can switch to Entresto therapy. Also start Coreg 3.125 mg b.i.d. and increase spironolactone to 25 mg daily. Can switch to p.o. Lasix. Plan for discharge for tomorrow, consider PT consultation due to his balance issues. Monitor his BMP and BNP tomorrow also monitor electrolytes and replace as needed. Will set up for outpatient ischemic workup and follow- up. CHF education to be provided Will sign of the case at current time. Time Spent With Patient Time: Total time managing care of this patient today ____ minutes. Progress Note: Quality Stroke Does the patient have a stroke diagnosis?: No Procedures Date of Service Date of Service: 12/07/22
--- NOTE | 2022-12-07 10:29 | HO.PM.IMPN ---
Subjective Subjective Date of Service: 12/07/22 Interval History: This history was taken in Khmer from the patient. Pt feels much less dyspneic and much less swollen. Net negative 6.4L this admission. BP still high No chest pain Review of Systems Review of Systems: Yes all other systems are reviewed and are negative Physical Exam Vital Signs: Vital Signs: Last Vital Signs Temp 97.6 F 12/07/22 07:44 Pulse 84 12/07/22 07:44 Resp 20 12/07/22 07:44 BP 164/94 H 12/07/22 07:44 Pulse Ox 95 12/07/22 07:44 O2 Del Method Room Air 12/07/22 07:44 BMI result Body Mass Index 29.0 Gen: in no acute distress HEENT: sclera anicteric, moist mucus membranes Neck: supple, JVD present Lungs: clear to auscultation bilaterally Heart: regular rate and rhythm, no murmurs Abd: soft, non-tender, non-distended Ext: 1+ bilateral lower extremity edema Skin: warm/well-perfused Neuro: alert and oriented x3, no focal findings Psych: appropriate affect Objective Data Active Medications Acetaminophen (Acetaminophen 325 Mg Tablet) 650 mg PO Q6H PRN PRN Reason: Pain, Mild (Pain Scale 1-3) Last Admin: 12/06/22 23:25 Dose: 650 mg Documented By: DESTINY Docusate Sodium (Docusate Sodium 100 Mg Capsule) 100 mg PO DAILY PRN PRN Reason: Constipation Enoxaparin Sodium (Enoxaparin Sodium 40 Mg/0.4 Ml Syringe) 40 mg SUBCUT Q24H [facility] Last Admin: 12/07/22 05:26 Dose: 40 mg Documented By: DESTINY Furosemide (Furosemide 40 Mg/4 Ml Vial) 40 mg IVPUSH BID@0900,1800 ROD; Protocol Last Admin: 12/07/22 08:27 Dose: 40 mg Documented By: DOMINICORRBradley Glucose (Glucose Gel 15 Gm Gel..Gram.) 15 gm PO Q15M PRN; Protocol PRN Reason: per Hypoglycemia Standing Ord. Hydralazine HCl (Hydralazine Hcl 20 Mg/Ml Vial) 5 mg IVPUSH Q4H PRN; Protocol PRN Reason: sbp>180,dbp1>100 Last Admin: 12/06/22 04:11 Dose: 5 mg Documented By: DEB Dextrose (D10) 250 mls @ 750 mls/hr IV Q15M PRN; Protocol PRN Reason: per Hypoglycemia Standing Ord. Insulin Human Lispro (Insulin Lispro 100 Unit/Ml 3 Ml Vial) 0 unit SUBCUT QIDACHS [facility]; Protocol Last Admin: 12/07/22 08:28 Dose: 2 unit Documented By: NILE Nitroglycerin (Nitroglycerin 0.4 Mg Patch.Td24) 0.4 mg TRANSDERMA DAILY [facility]; Protocol Last Admin: 12/07/22 08:29 Dose: 0.4 mg Documented By: NILE Ondansetron HCl (Ondansetron Hcl 4 Mg/2 Ml Vial) 4 mg IVPUSH Q8H PRN PRN Reason: Nausea and Vomiting Pharmacy Consult (Consult Rx Perform Med Rec) 1 each MISCELLANE ONCE PRN PRN Reason: Consult order Sodium Chloride (0.9 % Sodium Chloride Flush 3 Ml Syringe) [address] [facility] Last Admin: 12/07/22 08:28 Dose: 3 ml Documented By: NILE Spironolactone (Spironolactone 25 Mg Tablet) 12.5 mg PO DAILY [facility]; Protocol Last Admin: 12/07/22 08:28 Dose: 12.5 mg Documented By: NILE Valsartan (Valsartan 80 Mg Tablet) 80 mg PO BID [facility]; Protocol Last Admin: 12/07/22 10:26 Dose: 80 mg Documented By: NILE Labs 12/07/22 07:23 12/07/22 07:23 Labs: Laboratory Results - last 24 hr 12/05/22 12/06/22 12/06/22 21:25 13:11 16:19 MCV MCH MCHC RDW Plt Count MPV Absolute Nucleated RBC Nucleated RBC % (auto) Anion Gap Estim Creat Clear Calc Estimated GFR POC Glucose 146 H 143 H Random Glucose Estimat Average Glucose 134 Hemoglobin A1c % 6.3 Calcium Magnesium B-Natriuretic Peptide 12/06/22 12/07/22 12/07/22 19:42 07:23 07:23 MCV 91.6 MCH 31.4 MCHC 34.3 RDW 13.2 Plt Count 171 MPV 12.2 Absolute Nucleated RBC 0.000 Nucleated RBC % (auto) 0.0 Anion Gap 18 Estim Creat Clear Calc 88.0 Estimated GFR > 60 POC Glucose 170 H Random Glucose 139 H Estimat Average Glucose Hemoglobin A1c % Calcium 9.5 Magnesium 1.7 B-Natriuretic Peptide 12/07/22 12/07/22 07:23 07:45 MCV MCH MCHC RDW Plt Count MPV Absolute Nucleated RBC Nucleated RBC % (auto) Anion Gap Estim Creat Clear Calc Estimated GFR POC Glucose 154 H Random Glucose Estimat Average Glucose Hemoglobin A1c % Calcium Magnesium B-Natriuretic Peptide 2140 H Assessment and Plan (1) Acute exacerbation of CHF (congestive heart failure): Status: Acute Plan hospital day#2 62yo M with hx CHF, unknown EF, HTN, and DM2 who has not had medical care for over a year presenting with dyspnea, admitted for ADHF has severe biventricular HF as well as severe diastolic dysfunction # ADHF # biventricular HF - continue IV furosemide 1 more day. On valsartan with plan to switch to Entresto. increase spironolactone and start carvedilol + also empagliflozin - monitor weight, I/O, BNP, lytes. # HTN urgency - valsartan, carvedilol, spironolactone # DM2 - A1c 6.3, start empagliflozin # VTE ppx: LMWH # dispo: anticipate home tomorrow. Will need close PCP + cardiology f/u In my clinical judgment, the patient requires continued inpatient hospitalization for the following reasons: IV diuresis Time Spent With Patient Time: Total time managing care of this patient today ___40_ minutes. Quality Stroke Does the patient have a stroke diagnosis?: No VTE Prior VTE?: No VTE Risk Level:: Medical - moderate - high VTE Device Contraindication: N/A - Device Ordered VTE Drug Contraindication: Treatment Not Indicated
--- NOTE | 2022-12-07 10:42 | MHC.CM.PN ---
CM met with Patient at bedside. Patient lives in an apartment with his Daughter and he uses a cane to assist with mobility. Patient had no services [employer](No PCP)and home/self care is the goal. CM has initiated and will follow for dc planning. CM to provide Patient with a list of area PCP offices and contact information.Patient is not covid erick'abdi.
[2022-12-07 11:21] VITALS: BP 148/82; PULSE 79; RESP 20; TEMP 36.2; O2SAT 97
[2022-12-07 11:39] LABS: Glucose, Whole Blood 101 mg/dL (60-115)
[2022-12-07] MEDS: carvediloL 3.125 MG TABLET PO ×2 (11:45→21:12)
[2022-12-07 15:59] VITALS: BP 162/90; PULSE 83; RESP 18; TEMP 37; O2SAT 97
[2022-12-07 16:22] LABS: Glucose, Whole Blood 177 mg/dL (60-115)
[2022-12-07 19:43] VITALS: BP 157/78; PULSE 78; RESP 18; TEMP 37; O2SAT 98
[2022-12-07 20:06] LABS: Glucose, Whole Blood 118 mg/dL (60-115)
[2022-12-07] MEDS: traZODone HCL 50 MG TABLET PO (21:12)
[2022-12-07 23:51] VITALS: BP 174/94; PULSE 86; RESP 18; TEMP 36.6; O2SAT 97
[2022-12-08] MEDS: Acetaminophen 325 MG TABLET 650 MG PO (00:14)
[2022-12-08] MEDS: 0.9 % Sodium Chloride Flush 3 ML SYRINGE IVFLUSH ×3 (00:15→16:53)
[2022-12-08] MEDS: Gabapentin 300 MG CAPSULE PO ×3 (00:36→20:23)
[2022-12-08 03:09] LABS: Anion Gap 16 (12-20); Blood Urea Nitrogen 18 mg/dL (9-16); Calcium 9.4 mg/dL (8.4-10.2); Carbon Dioxide 30 mmol/L (22-29); Chloride 93 mmol/L (96-108); Creatinine Clr Calc Pharmacy 75.6; Estimated Glomerular Filt Rate > 60; Glucose Random 160 mg/dL (60-115); Magnesium 1.7 mg/dL (1.6-2.6); Potassium 3.5 mmol/L (3.3-5.1); Sodium 135 mmol/L (135-145)
[2022-12-08 03:36] VITALS: BP 169/91; PULSE 70; RESP 20; TEMP 36.9; O2SAT 100
[2022-12-08] MEDS: Potassium Chloride Packet 20 MEQ PACKET 40 MEQ PO (04:22)
[2022-12-08] MEDS: Magnesium Sulfate/H2O 2 GM/50 ML PIGGYBACK IV (04:22)
--- NOTE | 2022-12-08 04:52 | PC.NURSE ---
CARE ASSUMED 23:15...AWAKE..ALERT AT HS..RESPIRATIONS EASY..C/O BILATERAL LOWER LEG PAIN...TYLENOL 650MG PO GIVEN...STATED TAKES NEURONTIN FOR LEG PAIN BUT RAN OUT OF IT ....MD UPDATED...NEURONTIN X1 DOSE ORDERED/GIVEN..RESTFUL AFTERWARDS..DOZING W/O DIFFICULTY....NSR...ISOLATED 17 BEAT V.TACH NOTED..NO FURTHER ECTOPY..DR FAUSTIN UPDATED...LABS DRAWN...K=3.5 AND Mg=1.7 ...KCL 40 MEQ PO AND MgSO4 2 GRAMS IV GIVEN PER ...REMAINS W/O FURTHER ECTOPY
[2022-12-08 07:48] VITALS: BP 142/94; PULSE 82; RESP 20; TEMP 36.4; O2SAT 97
[2022-12-08 07:58] LABS: B Type Natriuretic Peptide 846 pg/mL (<100)
[2022-12-08 08:10] LABS: Glucose, Whole Blood 155 mg/dL (60-115)
[2022-12-08] MEDS: Enoxaparin Sodium 40 MG/0.4 ML SYRINGE SUBCUT (08:22)
[2022-12-08] MEDS: Insulin Lispro 100 UNIT/ML 3 ML VIAL SUBCUT ×3 (08:22→20:29)
[2022-12-08] MEDS: Valsartan 80 MG TABLET PO (08:22)
[2022-12-08] MEDS: carvediloL 3.125 MG TABLET 6.25 MG PO ×2 (08:23→20:23)
[2022-12-08] MEDS: Spironolactone 25 MG TABLET PO (08:23)
[2022-12-08] MEDS: Empagliflozin 10 MG TABLET PO (08:24)
[2022-12-08] MEDS: Furosemide 40 MG TABLET PO ×2 (08:24→16:52)
[2022-12-08] MEDS: Nitroglycerin 0.4 MG PATCH.TD24 TRANSDERMA (08:32)
[2022-12-08 08:35] LABS: Anion Gap 16 (12-20); Blood Urea Nitrogen 16 mg/dL (9-16); Calcium 9.5 mg/dL (8.4-10.2); Carbon Dioxide 29 mmol/L (22-29); Chloride 95 mmol/L (96-108); Creatinine Clr Calc Pharmacy 79.6; Estimated Glomerular Filt Rate > 60; Glucose Random 139 mg/dL (60-115); Magnesium 2.1 mg/dL (1.6-2.6); Potassium 4.5 mmol/L (3.3-5.1); Sodium 135 mmol/L (135-145)
[2022-12-08 10:51] LABS: Glucose, Whole Blood 190 mg/dL (60-115)
[2022-12-08 11:33] VITALS: BP 136/78; PULSE 72; RESP 20; TEMP 36.8; O2SAT 95
--- NOTE | 2022-12-08 11:46 | HO.PM.IMPN ---
Subjective Subjective Date of Service: 12/08/22 Interval History: This history was taken in Faroese from the patient. feels much better; dyspnea + edema resolved had 21 beats of VT overnight c/o neuropathy of feet; was on gabapentin in past Review of Systems Review of Systems: Yes all other systems are reviewed and are negative Physical Exam Vital Signs: Vital Signs: Last Vital Signs Temp 98.2 F 12/08/22 11:33 Pulse 72 12/08/22 11:33 Resp 20 12/08/22 11:33 BP 136/78 12/08/22 11:33 Pulse Ox 95 12/08/22 11:33 O2 Del Method Room Air 12/08/22 11:33 BMI result Body Mass Index 29.0 Gen: in no acute distress HEENT: sclera anicteric, moist mucus membranes Neck: supple Lungs: clear to auscultation bilaterally Heart: regular rate and rhythm, 3/6 holosystolic murmur along LLSB Abd: soft, non-tender, non-distended Ext: trace bilateral lower extremity edema Skin: warm/well-perfused Neuro: alert and oriented x3, no focal findings Psych: appropriate affect Objective Data Active Medications Acetaminophen (Acetaminophen 325 Mg Tablet) 650 mg PO Q6H PRN PRN Reason: Pain, Mild (Pain Scale 1-3) Last Admin: 12/08/22 00:14 Dose: 650 mg Documented By: NELLIE Carvedilol (Carvedilol 3.125 Mg Tablet) 6.25 mg PO BID [facility]; Protocol Last Admin: 12/08/22 08:23 Dose: 6.25 mg Documented By: NILE Docusate Sodium (Docusate Sodium 100 Mg Capsule) 100 mg PO DAILY PRN PRN Reason: Constipation Empagliflozin (Empagliflozin 10 Mg Tablet) 10 mg PO DAILY [facility] Last Admin: 12/08/22 08:24 Dose: 10 mg Documented By: NILE Enoxaparin Sodium (Enoxaparin Sodium 40 Mg/0.4 Ml Syringe) 40 mg SUBCUT Q24H [facility] Last Admin: 12/08/22 08:22 Dose: 40 mg Documented By: NILE Furosemide (Furosemide 40 Mg Tablet) 40 mg PO BID@0900,1800 [facility]; Protocol Last Admin: 12/08/22 08:24 Dose: 40 mg Documented By: NILE Gabapentin (Gabapentin 300 Mg Capsule) 300 mg PO BID [facility] Last Admin: 12/08/22 11:32 Dose: 300 mg Documented By: NILE Glucose (Glucose Gel 15 Gm Gel..Gram.) 15 gm PO Q15M PRN; Protocol PRN Reason: per Hypoglycemia Standing Ord. Hydralazine HCl (Hydralazine Hcl 20 Mg/Ml Vial) 5 mg IVPUSH Q4H PRN; Protocol PRN Reason: sbp>180,dbp1>100 Last Admin: 12/06/22 04:11 Dose: 5 mg Documented By: DEB Dextrose (D10) 250 mls @ 750 mls/hr IV Q15M PRN; Protocol PRN Reason: per Hypoglycemia Standing Ord. Insulin Human Lispro (Insulin Lispro 100 Unit/Ml 3 Ml Vial) 0 unit SUBCUT QIDACHS [facility]; Protocol Last Admin: 12/08/22 11:32 Dose: 2 unit Documented By: NILE Nitroglycerin (Nitroglycerin 0.4 Mg Patch.Td24) 0.4 mg TRANSDERMA DAILY [facility]; Protocol Last Admin: 12/08/22 08:32 Dose: 0.4 mg Documented By: NILE Ondansetron HCl (Ondansetron Hcl 4 Mg/2 Ml Vial) 4 mg IVPUSH Q8H PRN PRN Reason: Nausea and Vomiting Pharmacy Consult (Consult Rx Perform Med Rec) 1 each MISCELLANE ONCE PRN PRN Reason: Consult order Sodium Chloride (0.9 % Sodium Chloride Flush 3 Ml Syringe) [facility] Last Admin: 12/08/22 08:24 Dose: 3 ml Documented By: NILE Spironolactone (Spironolactone 25 Mg Tablet) 25 mg PO DAILY [facility]; Protocol Last Admin: 12/08/22 08:23 Dose: 25 mg Documented By: NILE Valsartan (Valsartan 80 Mg Tablet) 80 mg PO BID [facility]; Protocol Last Admin: 12/08/22 08:22 Dose: 80 mg Documented By: NILE Labs 12/07/22 07:23 12/08/22 05:57 Labs: Laboratory Results - last 24 hr 12/07/22 12/07/22 12/08/22 15:56 19:41 02:39 Anion Gap 16 Estim Creat Clear Calc 75.6 Estimated GFR > 60 POC Glucose 177 H 118 H Random Glucose 160 H Calcium 9.4 Magnesium 1.7 B-Natriuretic Peptide 12/08/22 12/08/22 12/08/22 05:57 05:57 07:50 Anion Gap 16 Estim Creat Clear Calc 79.6 Estimated GFR > 60 POC Glucose 155 H Random Glucose 139 H Calcium 9.5 Magnesium 2.1 B-Natriuretic Peptide 846 H 12/08/22 10:46 Anion Gap Estim Creat Clear Calc Estimated GFR POC Glucose 190 H Random Glucose Calcium Magnesium B-Natriuretic Peptide Assessment and Plan (1) Acute exacerbation of CHF (congestive heart failure): Status: Acute Plan hospital day#3 62yo M with hx CHF, unknown EF, HTN, and DM2 who has not had medical care for over a year presenting with dyspnea, admitted for ADHF has severe biventricular HF as well as severe diastolic dysfunction # ADHF # biventricular HF - appears euvolemic, switch IV to PO furosemide - switch valsartan to Enstreto - continue spironolactone - increase carvedilol - continue empagliflozin # NSVT - carvedilol as above - high-risk for VT/VF, Cardiology will place LifeVest prior to d/c # HTN urgency - Entresto, carvedilol, spironolactone # neuropathy - resume gabapentin 300 mg bid # DM2 - A1c 6.3, on empagliflozin # VTE ppx: LMWH # dispo: anticipate home tomorrow. Will need close PCP + cardiology f/u In my clinical judgment, the patient requires continued inpatient hospitalization for the following reasons: BP control, VT Time Spent With Patient Time: Total time managing care of this patient today ___40_ minutes. Quality Stroke Does the patient have a stroke diagnosis?: No VTE Prior VTE?: No VTE Risk Level:: Medical - moderate - high VTE Device Contraindication: N/A - Device Ordered VTE Drug Contraindication: Treatment Not Indicated
--- NOTE | 2022-12-08 11:53 | PM.PNCARD ---
Subjective Subjective Date of Service: 12/08/22 Principal diagnosis: Decompensated congestive heart failure Interval history: Patient breathing a lot better. Overnight had 27 beat run of nonsustained ventricular tachycardia Review of Systems Constitutional: Reports no additional constitutional complaints Cardiovascular: Denies syncope, Denies leg edema, Denies lightheadedness, Denies Loss of Consciousness, Denies palpitations and Denies dyspnea Respiratory: Denies dyspnea Musculoskeletal: Reports no additional musculoskeletal complaints Reports system reviewed and no additional complaints, except as documented and Denies syncope Endocrine: Denies palpitations Physical Exam Vital Signs: Last Vital Signs Temp 98.2 F 12/08/22 11:33 Pulse 72 12/08/22 11:33 Resp 20 12/08/22 11:33 BP 136/78 12/08/22 11:33 Pulse Ox 95 12/08/22 11:33 O2 Del Method Room Air 12/08/22 11:33 BMI result Body Mass Index 29.0 Const General: cooperative, comfortable, no acute distress, alert, awake and in distress moderate and respiratory Nutritional Appearance: overweight Orientation/consciousness: patient oriented x3 Limitations: no limitations HEENT Head: Yes normocephalic and Yes atraumatic Neck Neck: Yes trachea midline, Yes supple and Yes no JVD Resp Effort & Inspection: normal respiratory effort Auscultation: rales bilateral and wheezes Cardio Jugular venous distension: no JVD Palpation: abnormal PMI displaced PMI Rate: regular rate Rhythm: regular rhythm Heart sounds: S1 normal heart sound present, S2 normal heart sound present, no click, no gallops and Murmur heart sound present systolic holo and at the left sternal border GI Auscultation: normal bowel sounds Skin General skin exam: no rashes or lesions noted Neuro General: patient oriented x3 and no focal motor deficits Extrem General: No clubbing, No cyanosis and Yes edema Objective Labs and Meds 12/07/22 07:23 12/08/22 05:57 Lab results: Laboratory Results - last 24 hr 12/07/22 12/07/22 12/08/22 15:56 19:41 02:39 Sodium 135 Potassium 3.5 Chloride 93 L Carbon Dioxide 30 H Anion Gap 16 BUN 18 H Creatinine 0.99 Estim Creat Clear Calc 75.6 Estimated GFR > 60 POC Glucose 177 H 118 H Random Glucose 160 H Calcium 9.4 Magnesium 1.7 B-Natriuretic Peptide 12/08/22 12/08/22 12/08/22 05:57 05:57 07:50 Sodium 135 Potassium 4.5 D Chloride 95 L Carbon Dioxide 29 Anion Gap 16 BUN 16 Creatinine 0.94 Estim Creat Clear Calc 79.6 Estimated GFR > 60 POC Glucose 155 H Random Glucose 139 H Calcium 9.5 Magnesium 2.1 B-Natriuretic Peptide 846 H 12/08/22 10:46 Sodium Potassium Chloride Carbon Dioxide Anion Gap BUN Creatinine Estim Creat Clear Calc Estimated GFR POC Glucose 190 H Random Glucose Calcium Magnesium B-Natriuretic Peptide Progress Note: A&P Assessment and plan (1) Acute exacerbation of CHF (congestive heart failure): Status: Acute Assessment and Plan: Patient with severe heart failure with severe LV systolic dysfunction. Switch to Entresto therapy for better blood pressure control. Continue to maximize carvedilol to 6.25 mg b.i.d.. Continue Aldactone. Continue Jardiance. Switch to p.o. Lasix. Importance of compliance with medication follow-up was discussed. Will eventually require ischemic workup and further evaluation for VSD with limited echo cardiogram with dedicated imaging. (2) NSVT (nonsustained ventricular tachycardia): Status: Acute Assessment and Plan: Nonsustained ventricular tachycardia which is highly likely given his poor LV systolic function. Will arrange for external Vest defibrillator prior to discharge. Continue heart failure medications as above. Will follow up with him after ischemic workup as outpatient. Time Spent With Patient Time: Total time managing care of this patient today ____ minutes. Progress Note: Quality Stroke Does the patient have a stroke diagnosis?: No Procedures Date of Service Date of Service: 12/08/22
--- NOTE | 2022-12-08 12:03 | MHC.CM.PN ---
CM assisted Patient with the completion of a HCP.
[2022-12-08 16:00] VITALS: BP 153/88; PULSE 73; RESP 18; TEMP 37.1; O2SAT 98
[2022-12-08 16:28] LABS: Glucose, Whole Blood 121 mg/dL (60-115)
[2022-12-08 20:00] VITALS: BP 140/80; PULSE 71; RESP 17; TEMP 36.6; O2SAT 95
[2022-12-08] MEDS: Sacubitril/Valsartan 49/51 1 TAB TABLET PO (20:23)
[2022-12-08 20:25] LABS: Glucose, Whole Blood 200 mg/dL (60-115)
[2022-12-09] VITALS: BP 123/76; PULSE 74; RESP 17; TEMP 36.7; O2SAT 97
[2022-12-09] MEDS: 0.9 % Sodium Chloride Flush 3 ML SYRINGE IVFLUSH ×2 (00:57→08:02)
[2022-12-09 04:00] VITALS: BP 141/87; PULSE 86; RESP 15; TEMP 37.6; O2SAT 99
[2022-12-09] MEDS: Enoxaparin Sodium 40 MG/0.4 ML SYRINGE SUBCUT (06:27)
[2022-12-09 06:42] VITALS: BMI 28.3
[2022-12-09 07:36] LABS: Glucose, Whole Blood 168 mg/dL (60-115)
[2022-12-09] MEDS: Nitroglycerin 0.4 MG PATCH.TD24 TRANSDERMA (07:59)
[2022-12-09 08:00] VITALS: BP 120/69; PULSE 86; RESP 18; TEMP 36.6; O2SAT 94
[2022-12-09] MEDS: Insulin Lispro 100 UNIT/ML 3 ML VIAL SUBCUT (08:00)
[2022-12-09] MEDS: carvediloL 3.125 MG TABLET 6.25 MG PO (08:01)
[2022-12-09] MEDS: Furosemide 40 MG TABLET PO (08:01)
[2022-12-09] MEDS: Spironolactone 25 MG TABLET PO (08:01)
[2022-12-09] MEDS: Gabapentin 300 MG CAPSULE PO (08:01)
[2022-12-09] MEDS: Sacubitril/Valsartan 49/51 1 TAB TABLET PO (08:01)
[2022-12-09] MEDS: Empagliflozin 10 MG TABLET PO (08:01)
--- NOTE | 2022-12-09 10:14 | P.PNCA_ITS ---
Subjective Subjective Date of Service: 12/09/22 Principal diagnosis: Decompensated congestive heart failure Interval history: Patient states that he is feeling okay. No new complaints. Review of Systems Review of Systems Yes all other systems are reviewed and are negative Constitutional: Reports as per HPI and Reports no additional constitutional complaints Eyes: Reports as per HPI and Denies no additional eye complaints Denies system reviewed and no additional complaints, except as documented and Reports as per HPI Cardiovascular: Reports as per HPI, Reports no additional cardiovascular complaints, Denies acrocyanosis, Denies cool extremities, Denies chest pain, Denies leg edema, Denies lightheadedness, Denies palpitations and Denies dyspnea Respiratory: Reports as per HPI, Denies no additional respiratory complaints and Denies dyspnea Gastrointestinal: Reports as per HPI and Denies no additional gastrointestinal complaints Genitourinary: Reports no additional male genitourinary complaints and Reports as per HPI Musculoskeletal: Reports no additional musculoskeletal complaints and Reports as per HPI Skin/Breast: Reports system reviewed and no additional complaints, except as docu Reports system reviewed and no additional complaints, except as documented and Reports as per HPI Psychiatric: Reports no additional psychiatric complaints and Reports as per HPI Endocrine: Reports no additional endocrine complaints, Reports as per HPI and Denies palpitations Hematologic/Lymphatic: Reports no additional hematologic/lymphatic complaints and Reports as per HPI Allergic/Immunologic: Reports no additional allergic/immunologic complaints and Reports as per HPI Physical Exam Vital Signs: Last Vital Signs Temp 97.9 F 12/09/22 08:00 Pulse 86 12/09/22 08:00 Resp 18 12/09/22 08:00 BP 120/69 12/09/22 08:00 Pulse Ox 94 12/09/22 08:00 O2 Del Method Nasal Cannula 12/09/22 04:00 O2 Flow Rate 3 12/09/22 04:00 BMI result Body Mass Index 28.3 Const General: comfortable and no acute distress Orientation/consciousness: patient oriented x3 HEENT Other: Unremarkable Head: Yes normal to inspection Neck Neck: Yes normal visual inspection Chest Chest palpation & inspection: normal inspection of the chest Resp Auscultation: clear to auscultation bilaterally Cardio Palpation: normal PMI Heart sounds: S1 normal heart sound present, S2 normal heart sound present, no gallops, no murmurs and no rubs GI Palpation (GI): Soft to palpation Back/Spine/Pelvis Other: unremarkable Skin General skin exam: no rashes or lesions noted Neuro General: patient oriented x3 Extrem General: Yes normal to inspection Psych Mental Status: mental status grossly normal Objective Labs and Meds 12/07/22 07:23 12/08/22 05:57 Lab results: Laboratory Results - last 24 hr 12/08/22 12/08/22 12/08/22 10:46 16:16 20:10 POC Glucose 190 H 121 H 200 H 12/09/22 07:30 POC Glucose 168 H Progress Note: A&P Assessment and plan (1) Acute on chronic systolic and diastolic heart failure, NYHA class 3: Status: Acute (2) NSVT (nonsustained ventricular tachycardia): Status: Acute (3) Accelerated essential hypertension: Status: Acute Plan Telemetry had 2 runs of nonsustained VT. Monomorphic in nature. 18 beats and 21 beats. Echocardiogram with LVEF of 25-30%. Moderate LVH. Severe diastolic dysfunction. Moderately dilated RV with severe systolic dysfunction. Pulmonary hypertension noted. Severe left atrial enlargement. Likely all chronic. At the current time, he is on carvedilol, Entresto, Lasix, Aldactone, Jardiance and nitroglycerin transdermal. Blood pressure was high upon admission but currently 120/69 mm Hg. Overall, he seems fairly compensated. Our office is contacting [employer] for fitting him before discharge. Discussed with Dr. Duque. Time Spent With Patient Time: Total time managing care of this patient today 45 minutes. Progress Note: Quality Stroke Does the patient have a stroke diagnosis?: No Procedures Date of Service Date of Service: 12/09/22
--- NOTE | 2022-12-09 10:51 | MHC.CM.PN ---
Addendum entered by aSrah Juarez 12/09/22 16:17: Life Vest ordered and is expected to receive today. Patient will follow up with new PCP and Public Health Epidemiologist. Updated Pts insurance sent to registration, Medicare. Discharge planned once vest received. Patients dtr will provide transport home. Original Note: Per MD rounds discharge today. CM has arranged for new PCP appointment. An appointment has also been made to follow up with cardiology. Patient has been seen by Dr Duran @ [facility]. A Life vest has been ordered. Pt information has been faxed to the vendor.
[2022-12-09 11:47] LABS: Glucose, Whole Blood 131 mg/dL (60-115)
[2022-12-09 11:59] VITALS: BP 122/67; PULSE 91; RESP 16; O2SAT 95
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
[2022-12-09 16:00] VITALS: BP 157/89; PULSE 18; RESP 18; TEMP 37.1; O2SAT 98
[2022-12-09 16:08] LABS: Glucose, Whole Blood 143 mg/dL (60-115)
--- NOTE | 2022-12-09 16:49 | PC.NURSE ---
Addendum entered by Leticia Jorgensen RN 12/09/22 16:59: Live vest Rep here at 1600. ELive vest education and instructions provided to patient and family. Original Note: Pt alert and oriented x4. Cara pain or discomfort. Pt being discharged this pm but waiting on Live vest before discharge. Pt also needs a PCP outpt set up. Done and completed by Fabrizio newell. Live vest rep called at 1300.
== END 2022-12-09 17:59 | disposition home or self-care (01) | DRG 291 ==
LOC: HO.ED 22:43 → HO.EDOVER 12-06 02:19 → HO.IMC 12-06 14:32
PROVIDERS: Admitting Provider Internal Medicine; Emergency Provider Internal Medicine; Visit Provider Family Medicine
DX: I11.0 Hypertensive heart disease with heart failure (principal); I50.23 Acute on chronic systolic (congestive) heart failure; I16.1 Hypertensive emergency; I47.20 Ventricular tachycardia, unspecified; J98.11 Atelectasis; E11.40 Type 2 diabetes mellitus with diabetic neuropathy, unspecified; I50.82 Biventricular heart failure; I27.20 Pulmonary hypertension, unspecified; F17.210 Nicotine dependence, cigarettes, uncomplicated; Z20.822 Contact with and (suspected) exposure to COVID-19; Z71.6 Tobacco abuse counseling; Z91.14 Patient's other noncompliance with medication regimen; Z79.899 Other long term (current) drug therapy
CPT/HCPCS: 36415; 71045; 71250; 74177; 80048; 80053; 82947; 83036; 83735; 83880; 84484; 85025; 85027; 85610; 87635; 93005; 93306; 96374; 96375; 97161; 99285; J1650; J1940; J2270; J3475; Q9957; Q9967

== ENCOUNTER → 2022-12-19 09:33 | Outpatient (REF) | payer MEDICARE, MEDICAID, SELFPAY ==
--- NOTE | ~2022-12-19 | NM_ITS ---
Myocardial perfusion study Indication: Heart failure to evaluate for myocardial ischemia Technique: The patient was brought in for a Lexiscan perfusion study on 12/19/2022. Patient performed low-level exercise and was injected 0.4 mg of Lexiscan intravenously. Within a minute of injection, 30 mCi of sestamibi was given intravenously. Images were obtained using the SPECT gamma camera interlaced with the gating device. Images were obtained in supine position. Resting perfusion study was performed on 12/20/2022. Patient was administered 30 mCi of sestamibi intravenously at rest. Images were then obtained in supine position. Images obtained with and without CT attenuation. Total DLP 129 mGy-cm. Images were processed with the software and compared side to side in short axis, horizontal long axis and vertical long axis views. Findings: The stress perfusion study showed non attenuated images show mildly to moderately reduced uptake in the inferior, inferolateral and lateral wall of the LV myocardium. Remainder of the LV myocardium is normally perfused. Attenuation corrected images show reduced uptake in the apex of the LV myocardium.. The gated study shows reduced LV systolic function with calculated LVEF of 46%. LV cavity is mildly dilated size. The gated study shows diffusely reduced wall thickening and contraction of segments. Resting study shows no change in perfusion pattern compared to stress perfusion study. Gating at rest reveals diffusely reduced wall motion with ejection fraction at 32%. The findings are consistent with no evidence of reversible defect suggestive of ischemia.. NM/NM cardiolite stress test Impression: 1. Myocardial perfusion imaging study shows no reversible ischemia 2. Gated LVEF is 46% with stress and 32% with rest. Consider echocardiogram if not done 3. Transient ischemic dilatation not present but LV cavity is dilated EKG is nondiagnostic for ischemia
--- NOTE | 2022-12-19 09:40 | CA_ITS ---
Acquisition Time: 2022-12-19 09:52:11 Total Exercise Time: 00:02:00 Test Indications: CHF NSVT Medications: CARVEDILOL ENTRESTO FUROSEMIDE SPIRONALACTONE GABAPENTIN JARDIANCE Protocol: LEXISCAN Max HR: 097 BPM 62% of Pred: 156 BPM Max BP: 102/064 mmHG Max Work Load: 1.0 METS Pharmacological stress test with Lexiscan injection while sitting and kicking his legs, without chest discomfort, with EKGs showing a fib, with isolated PVCs, normotensive response to injection, with [id number] EKGs. Nuclear images pending. Test reviewed with Dr. Jansen. Referred By: Joseph Duran Overread By: JENNIFER GIBBONS
[2022-12-19 09:45] LABS: MANUAL DIFF FLAG NO
[2022-12-19 10:42] LABS: Basophils Absolute Auto 0.1 X10*3/uL (0.0-0.2); Basophils Percent Auto 0.6 % (0-2); Eosinophils Absolute Auto 0.5 X10*3/uL (0.0-0.4); Eosinophils Percent Auto 5.1 % (0-4); Hematocrit 51.8 % (42.0-52.0); Hemoglobin 17.7 g/dl (14.0-18.0); Imm Gran Abs Auto 0.02 X10*3/uL (0.00-0.03); Imm Gran Pct Auto 0.2 % (0.0-0.4); Lymphocytes Absolute Auto 2.9 X10*3/uL (1.2-4.9); Lymphocytes Percent Auto 30.2 % (20-40); Mean Corpuscular HGB Conc 34.2 g/dl (31.0-36.0); Mean Corpuscular Hemoglobin 30.9 pg (27.0-33.0); Mean Corpuscular Volume 90.6 fL (80.0-98.0); Mean Platelet Volume 12.4 fL (9.4-12.4); Monocytes Absolute Auto 0.6 X10*3/uL (0.1-1.2); Monocytes Percent Auto 6.5 % (2-11); Neutrophils Absolute Auto 5.6 x10*3/uL (2.0-8.3); Neutrophils Percent Auto 57.4 % (45-73); Platelet Count 197 X10*3/uL (160-400); Red Blood Count 5.72 X10*6/uL (4.60-5.80); Red Cell Distribution Width 12.2 % (11.0-16.0); White Blood Count 9.7 X10*3/uL (4.8-10.8)
[2022-12-19 10:52] LABS: B Type Natriuretic Peptide 209 pg/mL (<100)
[2022-12-19 11:03] LABS: Anion Gap 15 (12-20); Blood Urea Nitrogen 31 mg/dL (9-16); Calcium 10.3 mg/dL (8.4-10.2); Carbon Dioxide 33 mmol/L (22-29); Chloride 92 mmol/L (96-108); Cholesterol 166 mg/dL; Estimated Glomerular Filt Rate 58; Glucose Random 256 mg/dL (60-115); HDL Cholesterol 39 mg/dL; LDL Cholesterol Calculated 80 mg/dl; Potassium 5.4 mmol/L (3.3-5.1); Sodium 135 mmol/L (135-145); Triglycerides 236 mg/dL
[2022-12-19 11:21] LABS: TSH reflex Free T4 1.24 uIU/mL (0.32-4.0)
== END ==
LOC: HO.CARD 09:33
PROVIDERS: PCP Nurse Practitioner Family; Visit Provider Internal Medicine Cardiovascular Disease
DX: Z13.220 Encounter for screening for lipoid disorders (principal); Z13.0 Encounter for screening for diseases of the blood and blood-forming organs and certain disorders involving the immune mechanism; Z13.29 Encounter for screening for other suspected endocrine disorder; E11.9 Type 2 diabetes mellitus without complications; I47.29 Other ventricular tachycardia; I50.82 Biventricular heart failure
CPT/HCPCS: 36415; 78452; 80048; 80061; 83880; 84443; 85025; 93017; A9500; J0280; J2785

== ENCOUNTER → 2022-12-23 10:01 | Outpatient (REF) | payer MEDICARE, MEDICAID, SELFPAY ==
--- NOTE | 2022-12-23 10:06 | HM_ITS ---
Conclusion: 1. Patient was monitored for total period of 3 days 2. Baseline was atrial fibrillation with average heart of 83 beats per minute 3. No significant pauses noted 4. Total of 865 PVCs accounting for 0.42% of total beats account for occasional PVCs 5. No patient reported events MTDD
== END ==
LOC: HO.CARD 10:01
PROVIDERS: PCP Nurse Practitioner Family; Visit Provider Nurse Practitioner Family
DX: I48.91 Unspecified atrial fibrillation (principal)
CPT/HCPCS: 93242

== ENCOUNTER → 2023-01-07 14:27 | Outpatient (BNVA) | payer MEDICARE, MEDICAID, SELFPAY | PROVIDERS: PCP Nurse Practitioner Family; Visit Provider Internal Medicine Cardiovascular Disease | DX: I50.82 Biventricular heart failure (principal); I42.9 Cardiomyopathy, unspecified; I48.19 Other persistent atrial fibrillation; F17.210 Nicotine dependence, cigarettes, uncomplicated | CPT/HCPCS: 99212 ==

== ENCOUNTER → 2023-01-22 10:51 | Day surgery (SDC) | payer MEDICARE, MEDICAID, SELFPAY ==
[2023-01-20 09:21] VITALS: BMI 28.4
--- NOTE | 2023-01-21 08:14 | P.CONAN_ITS ---
Documented by User: Vee Miramontes NP 01/21/23 08:18 HPI - Anesthesia Eval Consult details Narrative: 62yo M for Cardioversion Eliquis for afib PMFSH Active Problems Active Problems: All Active Problems (Updated 12/19/22 @ 11:05 by Rola Mccarty NP-C) Atrial fibrillation (Acute) COPD (chronic obstructive pulmonary disease) (Acute) Type 2 diabetes mellitus (Acute) Biventricular congestive heart failure (Acute) Acute on chronic systolic and diastolic heart failure, NYHA class 3 (Acute) NSVT (nonsustained ventricular tachycardia) (Acute) Past Medical History Medical History Accelerated essential hypertension Congestive heart failure COPD (chronic obstructive pulmonary disease) History of congestive heart failure Family History Family History Mother Diabetes Breast cancer Hypertension Father Diabetes Hypertension Family/Other Mental health disorder Substance use disorder Surgical History Surgical History History of open heart surgery Social History Social History Household Members: Children Household Members Other:: daughter Housing: Apartment Do you presently have visiting nurse or other home services: No Alcohol intake: former Patient Tobacco Use Status: Current everyday Tobacco user Tobacco use type: Cigarette Cigarettes Per Day: 4 e-Cigarette/Vaping Use: Never Used Second Hand Smoke Exposure: Yes Advance Directives: No Advance Directives Information Provided: Yes service: No Current occupational status: unemployed Cognitive needs: Yes Hearing needs: No Vision needs: Yes Meds Allergies Allergy/AdvReac Type Severity Reaction Status Date / Time No Known Allergies Allergy Verified 12/17/22 11:10 Exam Exam Date and Time: January 21, 2023 0814 Height,Weight and Vital Signs: Height 5 ft 6 in Weight 79.832 kg Narrative Narrative: Holter 12/2022 Conclusion: 1. Patient was monitored for total period of 3 days 2. Baseline was atrial fibrillation with average heart of 83 beats per minute 3. No significant pauses noted 4. Total of 865 PVCs accounting for 0.42% of total beats account for occasional PVCs 5. No patient reported events? ECHO 11/2022 Conclusions: - 1. Severe LV systolic dysfunction with LVEF of 25-30% with ? ? moderate LVH and grade 3 diastolic dysfunction ? 2. Moderately dilated right ventricle with severe systolic ? ? ? dysfunction? 3. Severe left atrial enlargement? 4. Mild mitral regurgitation ? 5. Moderately elevated at work a systolic pressure with? significant elevated right atrial pressures? 6. No gross pericardial effusion ? 7.? Mildly dilated ascending aorta at 4 cm ? ?? EKG 12/2022 Vent. Rate : 091 BPM ? ? Atrial Rate : 091 BPM ?? P-R Int : 160 ms? QRS Dur : 104 ms ? ? QT Int : 384 ms ? ? ? P-R-T Axes : 079 -67 075 degrees ?? QTc Int : 472 ms ? Normal sinus rhythm Left anterior fascicular block Minimal voltage criteria for LVH, may be normal variant ( [place] product ) Abnormal ECG No previous ECGs available NM cardiolite stress test 11/2022 Impression: ? 1.? Myocardial perfusion imaging study shows no reversible ischemia 2.? Gated LVEF is 46% with stress and 32% with rest. Consider echocardiogram if not done 3. Transient ischemic dilatation not present but LV cavity is dilated ? EKG is nondiagnostic for ischemia Assessment and Plan Assessment Anesthesia Assessment: Chart Reviewed Documented by User: Vanessa Russo MD 01/23/23 07:33 PMFSH Past Medical History Medical History Accelerated essential hypertension Congestive heart failure COPD (chronic obstructive pulmonary disease) History of congestive heart failure Family History Family History Mother Diabetes Breast cancer Hypertension Father Diabetes Hypertension Family/Other Mental health disorder Substance use disorder Family history of problems with anesthesia: No Surgical History Surgical History History of open heart surgery History of Problems with Anesthesia: No Social History Social History Household Members: Children Household Members Other:: daughter Housing: Apartment Do you presently have visiting nurse or other home services: No Alcohol intake: former Patient Tobacco Use Status: Current everyday Tobacco user Tobacco use type: Cigarette Cigarettes Per Day: 4 e-Cigarette/Vaping Use: Never Used Second Hand Smoke Exposure: Yes Advance Directives: No Advance Directives Information Provided: Yes service: No Current occupational status: unemployed Cognitive needs: Yes Hearing needs: No Vision needs: Yes Meds Allergies Allergy/AdvReac Type Severity Reaction Status Date / Time No Known Allergies Allergy Verified 12/17/22 11:10 Exam Airway Mallampati Class: II TM Dist: >3cm Neck ROM: Full Heart: afib Lungs: cta Assessment and Plan Assessment Anesthesia Assessment: Anesthesia Plan Discussed Final Anesthetic Review Family History of Problems with Anesthesia: No History of Problems with Anesthesia: No NPO: Yes ASA Class: III Final Preanesthetic Review: No Changes in Pt Med Stat, Meds/Allgs Chart Reviewed and Consent Obtained/Reviewed Patient Risk: Intermediate Procedure Risk: Low Anesthetic Plan Anesthetic Plan: MAC: Disposition: Standard PACU
--- NOTE | 2023-01-22 11:15 | MHC.SHP ---
Pre-Procedural Eval Section A Date of Service: 01/22/23 The patient is an INPATIENT: No Changes since office visit: Yes Patient answered all questions; No Cold of Flu in the past 2 weeks, No New Medical Problems and No Changes in Medication The History & Physical has been completed within 30 days and I have reviewed it.: Yes Section B Chief Complaint: Other persistent atrial fibrillation Allergies: Allergies Allergy/AdvReac Type Severity Reaction Status Date / Time No Known Allergies Allergy Verified 12/17/22 11:10 Plan I have reviewed the history and physical and performed a pertinent physical examination on my patient. No changes have occurred unless specified. Time Spent With Patient Time: Total time managing care of this patient today ____ minutes.
--- NOTE | 2023-01-22 11:17 | ECG_ITS ---
Test Reason : atrial fib, preop Blood Pressure : / mmHG Vent. Rate : 053 BPM Atrial Rate : 053 BPM P-R Int : 190 ms QRS Dur : 134 ms QT Int : 494 ms P-R-T Axes : 077 -76 123 degrees QTc Int : 463 ms Sinus bradycardia Left axis deviation Non-specific intra-ventricular conduction block Minimal voltage criteria for LVH, may be normal variant ( [place] product ) T wave abnormality, consider lateral ischemia Abnormal ECG When compared with ECG of 05-DEC-2022 21:16, Vent. rate has decreased BY 38 BPM Minimal criteria for Septal infarct are now Present T wave inversion now evident in Lateral leads Referred By: Joseph Duran Electronically Signed By:ROB TAO
--- NOTE | 2023-01-22 11:33 | PC.NURSE ---
Procedure cancelled by Dr Duran. 12 lead EKG reveals sinus john. Homoeopath at bedside
[2023-01-22 11:34] LABS: Glucose, Whole Blood 156 mg/dL (60-115)
== END ==
PROVIDERS: PCP Nurse Practitioner Family; Visit Provider Internal Medicine Cardiovascular Disease
DX: I48.19 Other persistent atrial fibrillation (principal); Z53.8 Procedure and treatment not carried out for other reasons; E11.9 Type 2 diabetes mellitus without complications; Z79.01 Long term (current) use of anticoagulants
CPT/HCPCS: 82947; 93005

== ENCOUNTER → 2023-02-04 09:48 | Outpatient (REF) | payer MEDICARE, MEDICAID, SELFPAY ==
--- NOTE | 2023-02-04 09:53 | HM_ITS ---
* Total monitoring time about 3 days. * Underlying rhythm is sinus. Average ventricular rate 57/Min. Range 43 to 90/Min. * Rare supraventricular ventricular ectopy. * No sustained arrhythmias. * No significant pauses or AV blocks. * No patient markers or events in diary. MTDD
--- NOTE | 2023-02-04 09:53 | CA_ITS ---
Transthoracic Echocardiogram Patient (Last, First, Middle): Osmel Ng, Gender: Male Date of : 1960 Age: 62 Procedure Date: 02/04/2023 Procedure Type: Transthoracic Echocardiogram Location: OP Height: 167.64 cm Weight: 72.58 kg BSA: 1.82 m2 Heart Rate: 52 bpm BP: 108 / 68 mmHg Silk Top Hat Body Maker: SB Referring MD: Joseph Duran MD Symptoms: I42.9 - Cardiomyopathy, unspecified Study Quality: Adequate/Limited echo ordered ECG Rhythm: Bradycardia Conclusions: - The left ventricular systolic function is mildly decreased. The calculated ejection fraction is 49% by biplane method. Findings Left Ventricle Normal left ventricular cavity size. The left ventricular systolic function is mildly decreased. The calculated ejection fraction is 49% by biplane method. There is mild global hypokinesis. There is mild septal asymmetric hypertrophy. LV peak GLS -12.3%. Could be underestimated. Venous The inferior vena cava is normal in size and collapses less than 50% with inspiration. Prior Study Comparison Changes noted compared to prior study dated: 12/06/2022. Improvement in LVEF. Measurements 2D Linear Measurements IVSd: 1.25 0.6-0.9/0.6-1.0 cm LVIDd: 5.16 3.9-5.3/4.2-5.9 cm LVIDd Index: 2.84 2.4-3.2/2.2-3.1 cm/m2 LVIDs: 3.91 2.0-3.6 cm LVPWd: 1.01 0.7-1.1 cm LV Mass: 281.98 67-162/88-224 g LV Mass Index: 154.93 43-95/49-115 g/m2 LVOT Diam: 2.20 3.0+(-)1.3 cm 2D Systolic Function EF 4C: 55.60 >55% EF 2C: 42.30 >55% EF BiP: 48.70 >55% LVOT LVOT Pk Sreekanth: 0.85 LVOT Mn Sreekanth: 0.58 LVOT VTI: 0.16 LVOT Pk Grad: 3.00 LVOT Mn Grad: 2.00 LVOT Diam: 2.20 LVOT Area: 3.80 Tricuspid Valve RA Press: 8.00 Updated in Other Vendor System with Status of Final Maykel Root MD electronically signed on 02/05/2023 11:49:08 AM with status of Final
== END ==
LOC: HO.CARD 09:48
PROVIDERS: PCP Nurse Practitioner Family; Visit Provider Internal Medicine Cardiovascular Disease
DX: I48.91 Unspecified atrial fibrillation (principal); I42.9 Cardiomyopathy, unspecified; I50.82 Biventricular heart failure
CPT/HCPCS: 93242; 93308; 93356

== ENCOUNTER 2023-02-18 11:00 | Outpatient (REF) | payer MEDICARE, MEDICAID, SELFPAY ==
[2023-02-18 12:57] LABS: Anion Gap 11 (12-20); Blood Urea Nitrogen 24 mg/dL (9-16); Carbon Dioxide 34 mmol/L (22-29); Chloride 100 mmol/L (96-108); Estimated Glomerular Filt Rate 51; Glucose Random 164 mg/dL (60-115); Potassium 5.1 mmol/L (3.3-5.1); Sodium 140 mmol/L (135-145)
[2023-02-18 13:03] LABS: B Type Natriuretic Peptide 49 pg/mL (<100)
== END 2023-02-18 11:01 | disposition home or self-care (01) ==
LOC: HO.LAB 11:00
PROVIDERS: PCP Nurse Practitioner Family; Visit Provider Internal Medicine Cardiovascular Disease
DX: I50.82 Biventricular heart failure (principal); I50.20 Unspecified systolic (congestive) heart failure; I48.0 Paroxysmal atrial fibrillation
CPT/HCPCS: 36415; 80048; 83880; 93005; 99212

== ENCOUNTER 2023-05-28 14:21 | Outpatient (REF) | payer MEDICARE, MEDICAID, SELFPAY ==
[2023-05-28 17:08] LABS: Anion Gap 15 (12-20); Blood Urea Nitrogen 32 mg/dL (9-16); Calcium 10.9 mg/dL (8.4-10.2); Carbon Dioxide 27 mmol/L (22-29); Chloride 101 mmol/L (96-108); Estimated Glomerular Filt Rate 53; Glucose Random 86 mg/dL (60-115); Potassium 4.4 mmol/L (3.3-5.1); Sodium 139 mmol/L (135-145)
== END 2023-05-28 14:22 | disposition home or self-care (01) ==
LOC: HO.LAB 14:21
PROVIDERS: PCP Nurse Practitioner Family; Referring Provider Nurse Practitioner Family; Visit Provider Internal Medicine Cardiovascular Disease
DX: I48.0 Paroxysmal atrial fibrillation (principal); I50.20 Unspecified systolic (congestive) heart failure
CPT/HCPCS: 36415; 80048; 93005; 99212

== ENCOUNTER 2023-05-28 14:21 | Outpatient (AMB) | payer MEDICARE, MEDICAID, SELFPAY ==
[2023-05-28 14:25] VITALS: BP 120/78; PULSE 65; BMI 27.4
--- NOTE | 2023-05-28 14:25 | MHC.OFFVIS ---
Intake Vital Signs 05/28/23 14:25 Height 5 ft 6 in Weight 169 lb 12.095 oz BMI 27.4 BP 120/78 Blood Pressure Location Lt brachial Position Sitting Pulse 65 Intake Visit Reasons: 3 mth f/up w/ ekg Intake Note: 3 month follow-up with ekg feeling good Vb Net Programmer Required: Yes Representative Government Relations: Representative Government Relations Present Accompanied by: Daughter Allergies No Known Allergies Allergy (Verified 03/20/23 15:05) Medication List - Last Reconciled 05/28/23 by Joseph Duran MD albuterol sulfate 90 mcg/actuation 2 puffs inhalation Q4-6H PRN amiodarone 200 mg PO DAILY apixaban (Eliquis) 5 mg PO BID carvedilol 6.25 mg See Protocol PO BID empagliflozin (Jardiance) 10 mg PO DAILY furosemide 40 mg See Protocol PO BID@0900,1800 gabapentin 300 mg PO BID miscellaneous medical supply 1 ea miscellaneous DAILY miscellaneous medical supply 1 ea miscellaneous DAILY sacubitril-valsartan 49-51 mg (Entresto) 1 tab See Protocol PO BID spironolactone 25 mg PO DAILY HPI HPI Comments History of Present Illness Details Osmel comes for follow-up, accompanied by his daughter who exercise nuclear equipment operator. Declined a certified nuclear equipment operator. Patient has been doing well. He says his breathing is improved significantly and the functionality as per the daughter is improved. No heart failure symptoms. No leg edema, orthopnea, PND. Takes all his medications. No prolonged palpitations. Unfortunately continues to smoke. However takes all the other medications regularly. 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, NYHA class 3 History of congestive heart failure Accelerated essential hypertension Surgical History History of open heart surgery Family History Mother Diabetes Breast cancer Hypertension Father Diabetes Hypertension Family/Other Mental health disorder Substance use disorder Social History Household Members: Children Household Members Other:: daughter Housing: Apartment Do you presently have visiting nurse or other home services: No Alcohol intake: former Patient Tobacco Use Status: Current everyday Tobacco user Tobacco use type: Cigarette Cigarettes Per Day: 4 e-Cigarette/Vaping Use: Never Used Second Hand Smoke Exposure: Yes service: No Current occupational status: unemployed Cognitive needs: Yes Hearing needs: No Vision needs: Yes Review of Systems Const Denies chills, Denies fatigue, Denies fever(s), Denies frequent falls, Denies weakness, Denies weight gain and Denies weight loss ENT Denies dizziness Card Denies chest pain, Denies leg edema, Denies lightheadedness, Denies palpitations, Denies dyspnea, Denies dyspnea on exertion, Denies orthopnea and Denies other (loss of consciousness) Resp Denies cough, Denies dyspnea and Denies dyspnea on exertion GI Denies hematochezia and Denies change in stool character Musc Denies abnormal gait, Denies muscle weakness, Denies numbness, Denies radiating pain into limb and Denies tingling Neuro Denies abnormal gait, Denies dizziness, Denies frequent falls, Denies numbness, Denies tingling and Denies weakness Endo Denies fatigue and Denies palpitations Physical Exam Vital Signs: Last Vital Signs Pulse 65 05/28/23 14:25 BP 120/78 05/28/23 14:25 BMI result Body Mass Index 27.4 Const General: cooperative, comfortable, no acute distress, alert and awake Nutritional Appearance: overweight Orientation/consciousness: patient oriented x3 Limitations: no limitations Neck Neck: Yes trachea midline, Yes supple and Yes no JVD Resp Effort & Inspection: normal respiratory effort Auscultation: clear to auscultation bilaterally Cardio Jugular venous distension: no JVD Palpation: normal PMI Rate: regular rate Rhythm: regular rhythm Heart sounds: S1 normal heart sound present, S2 normal heart sound present, no click, no gallops and Murmur heart sound present systolic holo and harsh Skin General skin exam: no rashes or lesions noted Neuro General: patient oriented x3 and no focal motor deficits Extrem General: Yes no clubbing, cyanosis or edema Office Procedures EKG Details: EKG shows normal sinus rhythm with left anterior fascicular block with lateral ST T wave changes suggestive of repolarization abnormality [id number], Complete Assessment & Plan Assessment & Plan (1) Heart failure with reduced ejection fraction: Code(s): I50.20 - Unspecified systolic (congestive) heart failure Plan: Heart failure with reduced ejection fraction but much improved LV ejection fraction since managing rhythm and on neurohormonal modulation. Clinically euvolemic and well compensated. Will reduce Lasix to 40 mg daily. Discussed with patient and patient's daughter about management of heart failure. Daily weight monitoring avoidance of salt loading was discussed. If in month's time his symptoms are still improved will reduce Lasix further to 20 mg daily and eventually discontinued and use it on a p.r.n. basis. Continue Jardiance. Continue spironolactone, both for neurohormonal modulation. Signs and symptoms of heart failure were discussed advised to call me with any new symptoms. Follow-up echocardiogram 6 months time. Continue to pursue rhythm control approach as below. (2) Paroxysmal atrial fibrillation: Code(s): I48.0 - Paroxysmal atrial fibrillation Plan: Paroxysmal atrial fibrillation status post cardioversion and currently on amiodarone therapy. Has done very well with rhythm control approach will continue pursue rhythm control approach. In 6 months if he remains in sinus rhythm and with good control will consider switching him to an alternative antiarrhythmic drug therapy. Continue full oral anticoagulation, currently on Eliquis 5 mg b.i.d.. Semi annual renal function test to be pursued. Advised to call me with any new symptoms. Avoidance of stimulants was discussed. Complete smoking cessation was advised. Follow up in the clinic in 6 months time, sooner p.r.n.. Thank you for allowing me to partake in his care Orders: Orders CA echo transthoracic complete 6 Months I50.20 - Unspecified systolic (congestive) heart failure Basic Metabolic Panel Today I50.20 - Unspecified systolic (congestive) heart failure ECG holter monitor 48 hour 6 Months I48.0 - Paroxysmal atrial fibrillation Medications: Changed From furosemide 40 mg See Protocol PO BID@0900,1800 60 tabs 3RF To furosemide 40 mg See Protocol PO DAILY 60 tabs 3RF Coding Level of Care Code Est Pt Level 4 (80294) Diagnoses Heart failure with reduced ejection fraction I50.20 Paroxysmal atrial fibrillation I48.0 CPT Codes EKG - CPT: 95492-[id number], Complete ([id number])
== END 2023-05-28 14:49 | disposition home or self-care (01) ==
PROVIDERS: PCP Nurse Practitioner Family; Referring Provider Nurse Practitioner Family; Visit Provider Internal Medicine Cardiovascular Disease
DX: I50.20 Unspecified systolic (congestive) heart failure (principal); I48.0 Paroxysmal atrial fibrillation
CPT/HCPCS: 93010; 99214

== ENCOUNTER 2023-06-11 11:22 | Outpatient (REF) | payer MEDICARE, SELFPAY ==
[2023-06-11 12:23] LABS: Estimated Average Glucose 140 mg/dL; Hemoglobin A1c % 6.5 % (<6.0)
[2023-06-11 13:19] LABS: Alanine Aminotransferase 10 U/L (0-40); Albumin Level 4.6 g/dL (3.5-5.0); Alkaline Phosphatase 82 U/L (39-117); Anion Gap 13 (12-20); Aspartate Amino Transferase 13 U/L (5-37); Bilirubin Total 0.5 mg/dL (0.0-1.0); Blood Urea Nitrogen 28 mg/dL (9-16); Calcium 9.8 mg/dL (8.4-10.2); Carbon Dioxide 30 mmol/L (22-29); Chloride 102 mmol/L (96-108); Cholesterol 167 mg/dL (<200); Estimated Glomerular Filt Rate 56; Glucose Fasting 159 mg/dL (60-99); Glucose Random 158 mg/dL (60-115); HDL Cholesterol 40 mg/dL (>40); LDL Cholesterol Calculated 96 mg/dL (<100); Sodium 141 mmol/L (135-145); Total Protein 7.7 g/dL (6.5-8.0); Triglycerides 159 mg/dL (<150)
[2023-06-11 13:31] LABS: PSA,Total (Free>4and<10) 0.59 ng/mL (0.00-4.00)
[2023-06-12 16:19] LABS: Calcium (PTHI) 9.6 mg/dL (8.6-10.3); PTHI 96 pg/mL (16-77)
== END 2023-06-11 11:23 | disposition home or self-care (01) ==
LOC: HO.LAB 11:22
PROVIDERS: PCP Nurse Practitioner Family; Visit Provider Nurse Practitioner Family
DX: E83.52 Hypercalcemia (principal); E11.9 Type 2 diabetes mellitus without complications; I50.20 Unspecified systolic (congestive) heart failure; Z12.5 Encounter for screening for malignant neoplasm of prostate; Z13.220 Encounter for screening for lipoid disorders
CPT/HCPCS: 36415; 80053; 80061; 82330; 83036; 83970; 84153

== ENCOUNTER 2023-06-20 09:23 | Outpatient (AMB) | payer MEDICARE, SELFPAY ==
--- NOTE | 2023-06-20 09:26 | MHC.PC.OV ---
Vital Signs 06/20/23 09:28 Height 5 ft 6 in Weight 168 lb 6 oz BMI 27.2 BP 130/70 Blood Pressure Location Lt brachial Position Sitting Pulse 55 Pulse Source Pulse Oximeter Pulse Oximetry (%) 99 Oxygen Delivery Method Room Air Intake Visit Reasons: 3mth f/u Intake Note: Patient is here to follow up on COPD, DMII, NSVT, PAfib. Requesting for a walker, shower chair and CGM testing supplies. Adding Machine Operator Required: Yes Adding Machine Operator Language: Extrusion Die Repair Manager Name: Stacy (daughter) Information Interpreted: non-clinical & clinical Physicist [place]: Present Accompanied by: Daughter Allergies No Known Allergies Allergy (Verified 06/20/23 09:45) Medication List - Last Reconciled 06/20/23 by MARIAELENA Cardona albuterol sulfate 90 mcg/actuation 2 puffs inhalation Q4-6H PRN amiodarone 200 mg PO DAILY apixaban (Eliquis) 5 mg PO BID carvedilol 6.25 mg See Protocol PO BID empagliflozin (Jardiance) 10 mg PO DAILY furosemide 40 mg See Protocol PO DAILY gabapentin 300 mg PO BID miscellaneous medical supply 1 ea miscellaneous DAILY miscellaneous medical supply 1 ea miscellaneous DAILY sacubitril-valsartan 49-51 mg (Entresto) 1 tab See Protocol PO BID spironolactone 25 mg PO DAILY Tobacco use date assessed: 06/20/23 Fall risk assessment: 2 + Falls in past year Last assessed Fall Risk: 06/20/23 Dental Screening Dental Screen Date: 06/20/23 Did you have a dental visit in the last 12 months?: No Did you have a dental problem in the last 6 months where you did not have access to dental care?: No Was dental information given to patient?: No HPI HPI Comments History of Present Illness Details 63-year-old male past medical history significant for paroxysmal AFib heart failure, COPD, type 2 diabetes mellitus and NSVT. Patient presents today for follow up exam. Patient accompanied by daughter who assists with interpretation of this appointment, declined certified cvt rn. Review of the notes and patient currently seeing nurses' association counselor. Last echo LVEF improved to 49%, no signs heart failure. Patient to continue on amiodarone 200 mg daily at this time, Lasix was changed to 40 mg daily. Patient advised to continue on amiodarone, furosemide and Eliquis. Recommended 6 month follow-up after repeat echocardiogram and EKG. Patient's daughter reports unsteady gait and will loose balance, requesting walker and shower chair.; prescriptions entered into be faxed to [facility] as requested by patient's daughter. Patient daughter reports memory memory problems, forgetting brother names, frequently forgetting things and forgetting he ate lunch. Family hx of dementia in mother and father. 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, NYHA class 3 History of congestive heart failure Accelerated essential hypertension Surgical History History of open heart surgery Family History Mother Diabetes Breast cancer Hypertension Father Diabetes Hypertension Family/Other Mental health disorder Substance use disorder Social History Household Members: Children Household Members Other:: daughter Housing: Apartment Do you presently have visiting nurse or other home services: No Alcohol intake: former Patient Tobacco Use Status: Current everyday Tobacco user Tobacco use type: Cigarette Cigarettes Per Day: 7 e-Cigarette/Vaping Use: Never Used Second Hand Smoke Exposure: Yes service: No Current occupational status: unemployed Cognitive needs: Yes Hearing needs: No Vision needs: Yes Questionnaire Thrive Questionnaire Date Thrive assessed: 12/17/22 TC-7 AMB Questionnaire TC-7 Date TC - 7 assessed: 12/17/22 Source: Developed by Drs. Russ Stearns, Janice Guadalupe, Patricio Rodriguez and colleagues, with an educational lety from [employer]. Review of Systems Const Denies chills, Denies fatigue, Denies fever(s) and Denies poor appetite Eyes Denies no additional complaints ENT Reports Normal hearing present Card Denies chest pain, Denies syncope, Denies rapid heart rate and Denies dyspnea Resp Denies cough and Denies dyspnea GI Denies change in stool character, Denies constipation, Denies diarrhea, Denies nausea and Denies vomiting Denies dysuria, Denies urinary frequency and Denies urinary urgency Neuro Reports Normal hearing present, Denies confusion and Denies syncope Psych Denies confusion Endo Denies fatigue Physical exam (Primary Care) Vital Signs: Last Vital Signs Pulse 55 06/20/23 09:28 BP 130/70 06/20/23 09:28 Pulse Ox 99 06/20/23 09:28 Oxygen Delivery Method Room Air 06/20/23 09:28 BMI result Body Mass Index 27.2 Tobacco/Smoking Status: Tobacco use Status Tobacco use date assessed 06/20/23 06/20/23 09:28 Patient Tobacco Use Status Current everyday Tobacco 06/20/23 09:28 Tobacco use type Cigarette 06/20/23 09:28 e-Cigarette/Vaping Use Never Used 06/20/23 09:28 Thrive Assessment: Date of Thrive Assessment Date Thrive assessed 12/17/22 06/20/23 09:28 Const General: No confusion Orientation/consciousness: No confusion HENMT Head: Yes normocephalic and Yes atraumatic Eyes Conjunctivae: conjunctivae normal Chest Chest palpation & inspection: normal inspection of the chest Resp Effort & Inspection: normal respiratory effort Auscultation: clear to auscultation bilaterally, no crackles, no rhonchi and no wheezes Cardio Rate: regular rate Rhythm: regular rhythm Heart sounds: S2 normal heart sound present and Murmur heart sound present GI Inspection: Yes normal to inspection Neuro General: No confusion Cranial nerves: Yes Normal hearing present Extrem General: No edema Assessment and Plan Assessment & Plan (1) Type 2 diabetes mellitus: Code(s): E11.9 - Type 2 diabetes mellitus without complications Plan: Continue on Jiardiance Hgb A1c 06/11 6.5% Patient educated to decrease the amount of carbohydrate intake such as pasta, bread, rice and potatoes are all sugar in addition to the sweet stuff. Remember that fruits are good but they also have sugar. Order sent for new glucometer, strips and lancets (2) Unsteady gait: Code(s): R26.81 - Unsteadiness on feet Plan: Patient requesting prescription for Rollator walker and shower chair. Miscellaneous medical prescriptions entered and fax to [facility]. (3) Peripheral neuropathy: Code(s): G62.9 - Polyneuropathy, unspecified Plan: Patient reports continued neuropathy pain on gabapentin 300 mg b.i.d. patient requesting if he can be increased to 3 times a day cancers at times that his tingling pain in his feet worsens mid day. Gabapentin frequency increased to t.i.d.. (4) COPD (chronic obstructive pulmonary disease): Code(s): J44.9 - Chronic obstructive pulmonary disease, unspecified Plan: albuerol inhaler prescribed as needed. (5) NSVT (nonsustained ventricular tachycardia): Code(s): I47.29 - Other ventricular tachycardia (6) Poor short term memory: Comment: family hx dementia in mother and father Code(s): R41.3 - Other amnesia Plan: Patient's daughter requesting referral for Neurology for evaluation of dementia given she has noticed her father becoming more forgetful and he has a positive family history of dementia and both his parents. (7) Biventricular congestive heart failure: Code(s): I50.82 - Biventricular heart failure Plan: Cotninue on Carvedilol, furosemide and spironilactone. Continue to Follow with cardiology. Plan Follow up in 3 months Orders: Orders Lipid Panel 3 Months Z13.220 - Encounter for screening for lipoid disorders Hemoglobin A1c 3 Months E11.9 - Type 2 diabetes mellitus without complications Comprehensive [place]. Panel Fast 3 Months E11.9 - Type 2 diabetes mellitus without complications Referrals Neurology Referral R41.3 - Other amnesia Medications: New lancets (FreeStyle Lancets) As directed 100 ea 3RF E11.9 - Type 2 diabetes mellitus without complications miscellaneous medical supply Rollator walker with wheels. 1 ea miscellaneous ONCE 1 ea 0RF E11.9 - Type 2 diabetes mellitus without complications, G62.9 - Polyneuropathy, unspecified, I50.20 - Unspecified systolic (congestive) heart failure, J44.9 - Chronic obstructive pulmonary disease, unspecified, R26.81 - Unsteadiness on feet blood sugar diagnostic (Freestyle [employer] strips) As directed 10 ea 0RF blood-glucose meter (Freestyle [employer] meter) As directed 1 ea 0RF miscellaneous medical supply shower chair 1 ea miscellaneous ONCE 1 ea 0RF E11.9 - Type 2 diabetes mellitus without complications, G62.9 - Polyneuropathy, unspecified, I47.29 - Other ventricular tachycardia, I50.20 - Unspecified systolic (congestive) heart failure, J44.9 - Chronic obstructive pulmonary disease, unspecified, R26.81 - Unsteadiness on feet Changed From gabapentin 300 mg PO BID 60 caps 3RF To gabapentin 300 mg PO TID 90 caps 3RF Coding Level of Care Code Est Pt Level 4 (68605) Diagnoses Type 2 diabetes mellitus E11.9 Unsteady gait R26.81 Peripheral neuropathy G62.9 COPD (chronic obstructive pulmonary disease) J44.9 NSVT (nonsustained ventricular tachycardia) I47.29 Poor short term memory R41.3 Biventricular congestive heart failure I50.82
[2023-06-20 09:28] VITALS: BP 130/70; PULSE 55; O2SAT 99; BMI 27.2
== END 2023-06-20 10:01 | disposition home or self-care (01) ==
PROVIDERS: PCP Nurse Practitioner Family; Visit Provider Nurse Practitioner Family
DX: E11.42 Type 2 diabetes mellitus with diabetic polyneuropathy (principal); J44.9 Chronic obstructive pulmonary disease, unspecified; I47.29 Other ventricular tachycardia; I50.82 Biventricular heart failure; R26.81 Unsteadiness on feet; G62.9 Polyneuropathy, unspecified; R41.3 Other amnesia
CPT/HCPCS: 99214

== ENCOUNTER → 2023-08-19 09:20 | Outpatient (REF) | payer MEDICARE, SELFPAY | LOC: HO.SL 09:20 | PROVIDERS: PCP Nurse Practitioner Family; Visit Provider Nurse Practitioner Family | DX: G47.30 Sleep apnea, unspecified (principal); R06.83 Snoring | CPT/HCPCS: 95806 ==

== ENCOUNTER → 2023-08-19 09:34 | Outpatient (BNV) | payer MEDICARE, SELFPAY | PROVIDERS: PCP Nurse Practitioner Family; Visit Provider Internal Medicine | DX: R06.83 Snoring (principal) | CPT/HCPCS: 95806 ==

== ENCOUNTER 2023-09-25 09:04 | Outpatient (AMB) | payer MEDICARE, SELFPAY ==
--- NOTE | 2023-09-25 09:23 | A.OFFVIS_ITS ---
Intake Vital Signs 09/25/23 09:25 Height 5 ft 6 in Weight 174 lb 4 oz BMI 28.1 BP 140/90 H Blood Pressure Location Lt brachial Position Sitting Pulse 60 Pulse Source Pulse Oximeter Pulse Oximetry (%) 98 Oxygen Delivery Method Room Air Intake Visit Reasons: [id number]-Aagpmzm-Oenpcfuzy Allergies No Known Allergies Allergy (Verified 09/25/23 09:27) HPI HPI Comments History of Present Illness Details 63 y/o male patient with HTN, CHF, T2 DM presents for new in-person visit for evaluation of memory loss. Pt is accompanied by his daughter, and she helped for history. Pt's daughter reports that she noticed patient's memory has been declining over the last years. He was diagnosed with CHF last year, and his memory loss has been more progressed. prison memory is better. Pt was chronic smoker, and stopped last months. He has trouble remembering names, forgets conversations sometimes, repeats questions. He misplaces things around the house. He forgets his children's name or birthdays. He Wakes up in the middle of night, asking if he had a dinner. He forgetting he took the medications and double up the medications sometimes. He confused to use ATMs His daughter helps with housekeeping, laundry and helps with finances. He lives alone. He sleeps good. He denies depression or anxiety. No personality or behavior issues. Denies h/o head injury. Pt had a sleep study, it came back no sleep apnea. 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 He can do daily ADLs independently. His daughter prepare the medications and he can take them. His daughter manages finances and bills. He does not drive. 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, NYHA class 3 History of congestive heart failure Accelerated essential hypertension Surgical History History of open heart surgery Family History Mother Diabetes Breast cancer Hypertension Father Diabetes Hypertension Family/Other Mental health disorder Substance use disorder Social History (Updated 09/25/23 @ 09:28 by Mary Boyce) Household Members: Children Household Members Other:: daughter Housing: Apartment Do you presently have visiting nurse or other home services: No Alcohol intake: former Patient Tobacco Use Status: Former Tobacco user Tobacco use type: Cigarette Cigarettes Per Day: 7 e-Cigarette/Vaping Use: Never Used Second Hand Smoke Exposure: Yes service: No Current occupational status: unemployed Cognitive needs: Yes Hearing needs: No Vision needs: Yes Review of Systems Const All systems reviewed & are unremarkable except as noted in HPI and below Physical Exam Vital Signs: Last Vital Signs Pulse 60 09/25/23 09:25 BP 140/90 H 09/25/23 09:25 Pulse Ox 98 09/25/23 09:25 Oxygen Delivery Method Room Air 09/25/23 09:25 BMI result Body Mass Index 28.1 Const General: cooperative Nutritional Appearance: overweight Orientation/consciousness: oriented to person and oriented to place Limitations: language barrier Neck Neck: Yes full ROM and Yes supple Resp Effort & Inspection: normal respiratory effort and able to speak in complete sentences Neuro General: oriented to person and oriented to place Cranial nerves: Yes CN's II-XII intact bilaterally Motor exam (neuro): 5/5 motor strength present throughout and Tremors during motor activity present (bilateral hands tremor) Psych Appearance: grossly normal Affect: normal affect Attitude: cooperative Orientation What is the (year) (season) (date) (day) (month)?: season and month Where are we (state) ([facility]) (town or city) (hospital) (floor)?: state, town or city and hospital/clinic Registration Name of 3 unrelated objects clearly and slowly, then ask patient to repeat all 3 of them. (1st repeat determines score. Make sure they can repeat all three): object 1, object 2 and object 3 Recall Ask patient to repeat the 3 items from question #3.: object 1 Language Show patient a wristwatch & ask what it is. Repeat for pencil.: watch and pencil Ask the patient to repeat the phrase 'No ifs, ands, or buts' after you.: incorrect Ask the patient to 'take a piece of paper with their right hand' 'fold paper in half' 'place paper on floor': take paper in right hand, fold paper in half and place paper on floor Print the sentence 'CLOSE YOUR EYES' on a piece. If patient actually closes eyes then score.: followed written direction Give patient a blank piece of paper & ask to write a sentence. Score if it contains a noun & verb.: sentence contains subject and verb Score Score: 16 Assessment & Plan Assessment & Plan (1) Memory loss or impairment: Code(s): R41.3 - Other amnesia (2) Poor short term memory: Comment: family hx dementia in mother and father Code(s): R41.3 - Other amnesia Plan Advised patient to undergo brain MRI. Will check labs to see any reversible causes of memory loss. Encouraged patient to increase physical, cognitive and social activities. Start memantine 7 mg daily. Orders: Orders Vitamin D 25-OH (D2 and D3) 09/25/23 E11.9 - Type 2 diabetes mellitus without complications, I50.20 - Unspecified systolic (congestive) heart failure, R41.3 - Other amnesia TSH reflex Free T4 09/25/23 E11.9 - Type 2 diabetes mellitus without complications, I50.20 - Unspecified systolic (congestive) heart failure, R41.3 - Other amnesia Comprehensive Met. Panel 09/25/23 E11.9 - Type 2 diabetes mellitus without complications, I50.20 - Unspecified systolic (congestive) heart failure, R41.3 - Other amnesia MR head/brain wo con 09/25/23 R41.3 - Other amnesia Complete Blood Count Auto Diff 09/25/23 E11.9 - Type 2 diabetes mellitus without complications, I50.20 - Unspecified systolic (congestive) heart failure, R41.3 - Other amnesia Erythrocyte Sedimentation Rate 09/25/23 E11.9 - Type 2 diabetes mellitus without complications, I50.20 - Unspecified systolic (congestive) heart failure, R41.3 - Other amnesia Vitamin B12 and Folate 09/25/23 E11.9 - Type 2 diabetes mellitus without complications, I50.20 - Unspecified systolic (congestive) heart failure, R41.3 - Other amnesia RPR Monitor reflex titer 09/25/23 E11.9 - Type 2 diabetes mellitus without complications, I50.20 - Unspecified systolic (congestive) heart failure, R41.3 - Other amnesia Medications: New memantine 7 mg PO DAILY 90 ea 1RF Discontinued lancets (FreeStyle Lancets) Discontinued Reason: Insurance Denied As directed 100 ea 3RF E11.9 - Type 2 diabetes mellitus without complications blood sugar diagnostic (Freestyle [employer] strips) Discontinued Reason: Insurance Denied As directed 10 ea 0RF blood-glucose meter (Freestyle [employer] meter) Discontinued Reason: Insurance Denied As directed 1 ea 0RF Coding Level of Care Code New Pt Level 4 (16667) Diagnoses Memory loss or impairment R41.3 Poor short term memory R41.3
[2023-09-25 09:25] VITALS: BP 140/90; PULSE 60; O2SAT 98; BMI 28.1
== END 2023-09-25 10:12 | disposition home or self-care (01) ==
PROVIDERS: PCP Nurse Practitioner Family; Visit Provider Nurse Practitioner Family
DX: R41.3 Other amnesia (principal)
CPT/HCPCS: 99204

== ENCOUNTER → 2023-09-25 09:04 | Outpatient (BNVA) | payer MEDICARE, SELFPAY | PROVIDERS: PCP Nurse Practitioner Family; Visit Provider Nurse Practitioner Family | DX: R41.3 Other amnesia (principal) | CPT/HCPCS: 99202 ==

== ENCOUNTER → 2023-11-26 09:03 | Outpatient (REF) | payer MEDICARE, SELFPAY ==
--- NOTE | 2023-11-26 09:07 | HM_ITS ---
Conclusion: 1. Patient was monitored for total period of 1 day and 23 hours 2. Baseline was normal sinus rhythm with average heart of 56 beats per minute 3. Frequent sinus bradycardia noted with 72% of time heart rate below 60 beats per minute with no significant pauses 4. Rare PACs noted 5. No patient reported events MTDD
--- NOTE | 2023-11-26 09:07 | CA_ITS ---
Transthoracic Echocardiogram Patient (Last, First, Middle): Osmel Ng, Gender: Male Date of : 1960 Age: 63 Procedure Date: 11/26/2023 Procedure Type: Transthoracic Echocardiogram Location: OP Height: 167.64 cm Weight: 77.11 kg BSA: 1.87 m2 Heart Rate: bpm BP: 118 / 60 mmHg Pepper Cutter: Referring MD: Joseph Duran MD Help Desk Operator: Joseph Duran MD Symptoms: I50.20 - Unspecified systolic (congestive) heart failure Study Quality: Good ECG Rhythm: Sinus Conclusions: - 1. Normal LV ejection fraction of 60 65% with mild LVH with pseudonormal filling pattern 2. At least moderately dilated left atrium 3. Normal cardiac valvular Doppler 4. Normal RV systolic pressure 5. Upper limits of normal ascending aortic size 6. No pericardial effusion Findings Left Ventricle Normal left ventricular size and systolic function. There is mildly increased left ventricular wall thickness. The visually estimated ejection fraction is between 60-65%. Spectral Doppler is indicative of a pseudonormal filling pattern. E/E prime ratio is between 8 and 15 consistent with indeterminate filling pressures. Peak GLS is -17.4%, borderline low. Right Ventricle Normal right ventricular cavity size and systolic function. Atria The left atrium is moderately dilated. There is lipomatous hypertrophy of the interatrial septum. There is no evidence of interatrial shunt. The right atrium is likely dilated. Aortic Valve Normal aortic valve structure and function. There is no aortic valve stenosis. There is no aortic valve regurgitation. Mitral Valve There is mild anterior and posterior mitral leaflet thickening. There is trace mitral valve regurgitation. There is no mitral valve stenosis. Pulmonic Valve The pulmonic valve is likely normal. There is trace pulmonic valve regurgitation. Tricuspid Valve Normal tricuspid valve structure. There is mild tricuspid valve regurgitation. The right ventricular systolic pressure is normal. The right ventricular systolic pressure is 26 mmHg. Normal right atrial pressure. There is no evidence of pulmonary hypertension. Great Vessels The pulmonary artery was not well visualized. Venous The inferior vena cava is normal in size and collapses greater than 50% with inspiration. Pericardium/Pleural There is no evidence of pericardial effusion. Prior Study Comparison Changes noted compared to prior study. LV systolic function is normalized Measurements 2D Linear Measurements IVSd: 1.24 0.6-0.9/0.6-1.0 cm LVIDd: 5.02 3.9-5.3/4.2-5.9 cm LVIDd Index: 2.68 2.4-3.2/2.2-3.1 cm/m2 LVIDs: 3.25 2.0-3.6 cm LVPWd: 1.24 0.7-1.1 cm Ao Root: 3.50 2.1-3.5 cm LA Diam: 4.50 2.7-3.8/3.0-4.0 cm LAIDs Index: 2.41 1.5-2.3 cm/m2 LV Mass: 307.18 67-162/88-224 g LV Mass Index: 164.27 43-95/49-115 g/m2 LVOT Diam: 2.30 3.0+(-)1.3 cm Mitral Valve MV Pk E: 0.84 MV PK A: 0.71 MV Decel Time: 228.00 E/A: 1.20 E'Lateral: 8.05 E'Medial: 4.68 E/E' Med: 17.90 E/E' Lat: 10.40 PHT: 67.00 MVA PHT: 3.28 Decel [place]: 3.69 Aortic Valve AoV Pk Sreekanth: 1.15 AoV Mn Sreekanth: 0.76 AoV VTI: 0.28 AoV Pk Grad: 5.00 Aov Mn Grad: 3.00 ISMAEL Cont.VTI: 3.19 LVOT LVOT Pk Sreekanth: 0.95 LVOT Mn Sreekanth: 0.58 LVOT VTI: 0.21 LVOT Pk Grad: 4.00 LVOT Mn Grad: 2.00 LVOT Diam: 2.30 LVOT Area: 4.15 Diastolic Function MV Pk E: 0.84 MV Pk A: 0.71 E/A: 1.20 E'Medial: 4.68 E/E' Med: 17.90 E' Laterial: 8.05 E/E' Lat: 10.40 Right Ventricle TAPSE (mm): 17.00 TVS' Sreekanth: 7.00 Tricuspid Valve TR Pk Sreekanth: 2.40 TR Pk Grad: 23.00 RA Press: 3.00 RVSP: 26.00 Great Vessels Aorta Ao Root-2D: 3.50 2.0-3.7 cm Ao Asc: 3.60 2.1-3.4 cm Pulmonary Valve PV Pk Sreekanth: 1.93 Peak PV Grad: 15.00 Updated in Other Vendor System with Status of Final Joseph Duran MD electronically signed on 11/27/2023 5:07:51 PM with status of Final
== END ==
LOC: HO.CARD 09:03
PROVIDERS: PCP Nurse Practitioner Family; Visit Provider Internal Medicine Cardiovascular Disease
DX: I48.0 Paroxysmal atrial fibrillation (principal); I50.20 Unspecified systolic (congestive) heart failure
CPT/HCPCS: 93225; 93306; 93356

== ENCOUNTER → 2023-11-26 09:07 | Outpatient (BNV) | payer MEDICARE, SELFPAY | PROVIDERS: PCP Nurse Practitioner Family; Visit Provider Internal Medicine Cardiovascular Disease | DX: R00.1 Bradycardia, unspecified (principal) | CPT/HCPCS: 93227; 93306; 93356 ==

== ENCOUNTER 2023-11-27 09:55 | Outpatient (AMB) | payer MEDICARE, SELFPAY ==
--- NOTE | 2023-11-27 09:58 | MHC.OFFVIS ---
Intake Vital Signs 11/27/23 10:06 Height 5 ft 6 in Weight 175 lb 6 oz BMI 28.3 BP 142/80 H Blood Pressure Location Lt brachial Position Sitting Pulse 51 Pulse Source Pulse Oximeter Pulse Oximetry (%) 99 Oxygen Delivery Method Room Air Intake Visit Reasons: 2 month f/u INP-Amnesia - CONF w/address Intake Note: Patient presents for 2 months f/u. Since starting Memantine 2 months ago pt. hasn't notice a difference. Allergies No Known Allergies Allergy (Verified 11/27/23 10:05) HPI HPI Comments History of Present Illness Details 63 y/o male patient with HTN, CHF, T2 DM presents for follow up of memory loss. Pt is accompanied by his daughter, and she helped for history. Pt's daughter reports no memory changes, still forgetful, needs to set alarm for him for medications. He has trouble remembering names, forgets conversations sometimes, repeats questions. He misplaces things around the house. [facility] memory is better. He is on memantine 7 mg daily. He can do daily ADLs independently. His daughter prepare the medications and he can take them. His daughter manages finances and bills. He does not drive. Pt's daughter keeps trying to him be active, bring him out for walking and encouraging cognitive activities. Pt was chronic smoker, and stopped July,. His daughter helps with housekeeping, laundry and helps with finances. He lives alone. He sleeps good. He denies depression or anxiety. No personality or behavior issues. Pt had a sleep study, the result was negative for sleep apnea. The total sleep time AHI was only 3.8. However in supine position AHI was 9.5/hr and oxygen coco was 77%. Wt reduction and sleep in lateral position recommended. [facility]LY [facility] Medical History Atrial fibrillation COPD (chronic obstructive pulmonary disease) Biventricular congestive heart failure Acute on chronic systolic and diastolic heart failure, NYHA class 3 History of congestive heart failure Accelerated essential hypertension Surgical History History of open heart surgery Family History Mother Diabetes Breast cancer Hypertension Father Diabetes Hypertension Family/Other Mental health disorder Substance use disorder Social History Household Members: Children Household Members Other:: daughter Housing: Apartment Do you presently have visiting nurse or other home services: No Alcohol intake: former Patient Tobacco Use Status: Former Tobacco user Tobacco use type: Cigarette Cigarettes Per Day: 7 e-Cigarette/Vaping Use: Never Used Second Hand Smoke Exposure: Yes service: No Current occupational status: unemployed Cognitive needs: Yes Hearing needs: No Vision needs: Yes Review of Systems Const All systems reviewed & are unremarkable except as noted in HPI and below Physical Exam Vital Signs: Last Vital Signs Pulse 51 11/27/23 10:06 BP 142/80 H 11/27/23 10:06 Pulse Ox 99 11/27/23 10:06 Oxygen Delivery Method Room Air 11/27/23 10:06 BMI result Body Mass Index 28.3 Const General: cooperative Nutritional Appearance: overweight Orientation/consciousness: oriented to person and oriented to place Limitations: language barrier Neck Neck: Yes full ROM and Yes supple Resp Effort & Inspection: normal respiratory effort and able to speak in complete sentences Neuro General: oriented to person and oriented to place Cranial nerves: Yes CN's II-XII intact bilaterally Motor exam (neuro): 5/5 motor strength present throughout and Tremors during motor activity present (bilateral hands tremor) Psych Appearance: grossly normal Affect: normal affect Attitude: cooperative Assessment & Plan Assessment & Plan (1) Memory loss or impairment: Code(s): R41.3 - Other amnesia (2) Poor short term memory: Comment: family hx dementia in mother and father Code(s): R41.3 - Other amnesia Plan Brain MRI result requested from [facility]. Will check labs to see any reversible causes of memory loss. Encouraged patient to increase physical, cognitive and social activities. Increase memantine to 14 mg daily. Medications: New memantine 14 mg PO DAILY 30 days 30 ea 1RF Discontinued memantine Discontinued Reason: Doctor's Order 7 mg PO DAILY 90 ea 1RF Coding Level of Care Code Est Pt Level 3 (09694) Diagnoses Memory loss or impairment R41.3 Poor short term memory R41.3
[2023-11-27 10:06] VITALS: BP 142/80; PULSE 51; O2SAT 99; BMI 28.3
== END 2023-11-27 10:26 | disposition home or self-care (01) ==
PROVIDERS: PCP Nurse Practitioner Family; Visit Provider Nurse Practitioner Family
DX: R41.3 Other amnesia (principal)
CPT/HCPCS: 99213

== ENCOUNTER → 2023-11-27 09:55 | Outpatient (BNVA) | payer MEDICARE, SELFPAY | PROVIDERS: PCP Nurse Practitioner Family; Visit Provider Nurse Practitioner Family | DX: R41.3 Other amnesia (principal); I11.0 Hypertensive heart disease with heart failure; I50.20 Unspecified systolic (congestive) heart failure; E11.9 Type 2 diabetes mellitus without complications | CPT/HCPCS: 36415; 80053; 80061; 82306; 82607; 82746; 83036; 84443; 85025; 85652; 86592; 99212 ==

== ENCOUNTER 2023-11-27 10:29 | Outpatient (REF) | payer MEDICARE, SELFPAY ==
[2023-11-27 17:43] LABS: MANUAL DIFF FLAG NO
[2023-11-27 17:47] LABS: Basophils Absolute Auto 0.1 X10*3/uL (0.0-0.2); Basophils Percent Auto 0.7 % (0-2); Eosinophils Absolute Auto 0.4 X10*3/uL (0.0-0.4); Eosinophils Percent Auto 5.5 % (0-4); Hematocrit 44.4 % (42.0-52.0); Imm Gran Abs Auto 0.02 X10*3/uL (0.00-0.03); Imm Gran Pct Auto 0.3 % (0.0-0.4); Lymphocytes Absolute Auto 1.9 X10*3/uL (1.2-4.9); Mean Corpuscular HGB Conc 33.8 g/dl (31.0-36.0); Mean Corpuscular Hemoglobin 30.5 pg (27.0-33.0); Mean Corpuscular Volume 90.4 fL (80.0-98.0); Monocytes Absolute Auto 0.4 X10*3/uL (0.1-1.2); Monocytes Percent Auto 5.2 % (2-11); Neutrophils Absolute Auto 4.2 x10*3/uL (2.0-8.3); Neutrophils Percent Auto 61.3 % (45-73); Platelet Count 151 X10*3/uL (160-400); Red Blood Count 4.91 X10*6/uL (4.60-5.80); Red Cell Distribution Width 12.6 % (11.0-16.0); White Blood Count 6.9 X10*3/uL (4.8-10.8)
[2023-11-27 18:07] LABS: Alanine Aminotransferase 13 U/L (0-40); Albumin Level 4.6 g/dL (3.5-5.0); Alkaline Phosphatase 87 U/L (39-117); Anion Gap 12 (12-20); Aspartate Amino Transferase 10 U/L (5-37); Bilirubin Total 0.4 mg/dL (0.0-1.0); Blood Urea Nitrogen 27 mg/dL (9-16); Calcium 9.9 mg/dL (8.4-10.2); Carbon Dioxide 30 mmol/L (22-29); Chloride 107 mmol/L (96-108); Cholesterol 162 mg/dL (<200); Estimated Glomerular Filt Rate > 60; Glucose Fasting 109 mg/dL (60-99); Glucose Random 110 mg/dL (60-115); HDL Cholesterol 45 mg/dL (>40); LDL Cholesterol Calculated 99 mg/dL (<100); Potassium 4.8 mmol/L (3.3-5.1); Sodium 144 mmol/L (135-145); Total Protein 7.6 g/dL (6.5-8.0); Triglycerides 91 mg/dL (<150)
[2023-11-27 18:20] LABS: Estimated Average Glucose 128 mg/dL; Hemoglobin A1c % 6.1 % (<6.0)
[2023-11-27 18:34] LABS: TSH reflex Free T4 1.22 uIU/mL (0.32-4.0)
[2023-11-27 18:58] LABS: Folate 11.6 ng/mL (> or = 4.0); Vitamin B12 551 pg/mL (200-900)
[2023-11-27 19:35] LABS: Erythrocyte Sedimentation Rate 5 MM/HR (0-15)
[2023-11-28 13:48] LABS: RPR Rapid Plasma Reagin NON-REACTIVE (NON-REACTIVE)
[2023-12-01 22:58] LABS: Vitamin D 25-OH, D2 <4 ng/mL; Vitamin D 25-OH, D3 14 ng/mL; Vitamin D 25-OH, Total 14 ng/mL (30-100)
== END 2023-11-27 10:30 | disposition home or self-care (01) ==
LOC: HO.HKASLDS 10:29
PROVIDERS: Nurse Practitioner Family; Visit Provider Nurse Practitioner Family
DX: Z13.89 Encounter for screening for other disorder (principal)
CPT/HCPCS: 36415; 80053; 80061; 82306; 82607; 82746; 83036; 84443; 85025; 85652; 86592

== ENCOUNTER 2023-12-24 14:21 | Outpatient (AMB) | payer MEDICARE, SELFPAY ==
[2023-12-24 14:29] VITALS: BP 142/68; PULSE 57; BMI 27.9
--- NOTE | 2023-12-24 14:29 | MHC.OFFVIS ---
Intake Vital Signs 12/24/23 14:29 Height 5 ft 6 in Weight 173 lb BMI 27.9 BP 142/68 H Blood Pressure Location Lt brachial Position Sitting Pulse 57 Pulse Source Monitor Intake Visit Reasons: 6 mth fu after holter and echo (rs) Intake Note: 6 month follow up with EKG PT feels good Medicine Teacher Required: Yes Medicine Teacher Name: Daughter Stacy Accompanied by: Daughter Allergies No Known Allergies Allergy (Verified 11/27/23 10:05) Medication List - Last Reconciled 12/24/23 by Misty Ray NP albuterol sulfate 90 mcg/actuation 2 puffs inhalation Q4-6H PRN amiodarone 200 mg PO DAILY apixaban (Eliquis) 5 mg PO BID blood sugar diagnostic ([employer] Ultra Test strips) test once per day blood-glucose meter (Revel Body Ultra2 Meter) check sugar once daily bupropion HCl (smoking deter) 150 mg PO BID carvedilol 6.25 mg (2 x 3.125 mg) PO BID cholecalciferol (vitamin D3) 1,250 mcg PO QWEEK 12 weeks empagliflozin (Jardiance) 10 mg PO DAILY furosemide 40 mg See Protocol PO DAILY gabapentin 300 mg PO TID lancets (bettermarksTouch UltraSoft 2 Lancet) test once daily memantine 14 mg PO DAILY 30 days miscellaneous medical supply 1 ea miscellaneous DAILY miscellaneous medical supply 1 ea miscellaneous DAILY miscellaneous medical supply 1 ea miscellaneous ONCE miscellaneous medical supply 1 ea miscellaneous ONCE sacubitril-valsartan 49-51 mg (Entresto) 1 tab See Protocol PO BID spironolactone 25 mg PO DAILY HPI HPI Comments History of Present Illness Details 63-year-old male presents today for his follow-up. He presents with his daughter who is his career development coordinator. She is translating for patient and the appropriate form signed. He denies any dizziness, chest pains, shortness of breath, palpiitations, swelling, or orthopnea. He goes for walks and does daily chores and tolerates them well. He had quit smoking back in July 2023. He is avoiding salt as his daughter is doing his cooking. [facility] Medical History Atrial fibrillation COPD (chronic obstructive pulmonary disease) Biventricular congestive heart failure Acute on chronic systolic and diastolic heart failure, NYHA class 3 History of congestive heart failure Accelerated essential hypertension Surgical History History of open heart surgery Family History Mother Diabetes Breast cancer Hypertension Father Diabetes Hypertension Family/Other Mental health disorder Substance use disorder Social History Household Members: Children Household Members Other:: daughter Housing: Apartment Do you presently have visiting nurse or other home services: No Alcohol intake: former Patient Tobacco Use Status: Former Tobacco user Tobacco use type: Cigarette Cigarettes Per Day: 7 e-Cigarette/Vaping Use: Never Used Second Hand Smoke Exposure: Yes service: No Current occupational status: unemployed Cognitive needs: Yes Hearing needs: No Vision needs: Yes Review of Systems Const Denies weakness ENT Denies dizziness Card Denies chest pain, Denies chest pain with activity, Denies syncope, Denies rapid heart rate, Denies pedal edema, Denies edema, Denies leg edema, Denies lightheadedness, Denies palpitations, Denies dyspnea, Denies dyspnea on exertion and Denies orthopnea Resp Denies cough, Denies dyspnea and Denies dyspnea on exertion GI Denies hematochezia and Denies change in stool character Musc Denies abnormal gait, Denies muscle cramps, Denies muscle weakness, Denies numbness, Denies radiating pain into limb and Denies tingling Neuro Denies abnormal gait, Denies dizziness, Denies syncope, Denies numbness, Denies tingling and Denies weakness Endo Denies palpitations Physical Exam Vital Signs: Last Vital Signs Pulse 57 12/24/23 14:29 BP 142/68 H 12/24/23 14:29 BMI result Body Mass Index 27.9 Const General: healthy appearing and no acute distress Orientation/consciousness: patient oriented x3 Limitations: ambulation with cane HEENT Head: Yes normal to inspection Eyes General: appearance normal, both eyes and all related structures Neck Neck: Yes normal visual inspection Chest Chest palpation & inspection: normal inspection of the chest Resp Effort & Inspection: normal respiratory effort Auscultation: clear to auscultation bilaterally Cardio Jugular venous distension: no JVD Palpation: normal PMI Rate: regular rate Rhythm: regular rhythm Heart sounds: S1 normal heart sound present, S2 normal heart sound present, no click, no gallops, no murmurs and no rubs GI Inspection: Yes normal to inspection Palpation (GI): Soft to palpation Skin General skin exam: no rashes or lesions noted Neuro General: patient oriented x3 Extrem General: Yes normal to inspection Psych Appearance: grossly normal Office Procedures EKG Details: EKG today. Sinus Bradycardia. Left anterior fasciluar block. ST & T wave abnormality.. Rate 57 bpm. QRS 112ms. [id number]. [id number], Complete Results Reviewed Results Reviewed: Echocardiogram: Conclusions: - 1. Normal LV ejection fraction of 60 65% with mild LVH with pseudonormal filling pattern 2. At least moderately dilated left atrium 3. Normal cardiac valvular Doppler 4. Normal RV systolic pressure 5. Upper limits of normal ascending aortic size 6. No pericardial effusion Holter: Conclusion: 1. Patient was monitored for total period of 1 day and 23 hours 2. Baseline was normal sinus rhythm with average heart of 56 beats per minute 3. Frequent sinus bradycardia noted with 72% of time heart rate below 60 beats per minute with no significant pauses 4. Rare PACs noted 5. No patient reported events Assessment & Plan Assessment & Plan (1) Heart failure with reduced ejection fraction: Code(s): I50.20 - Unspecified systolic (congestive) heart failure (2) NSVT (nonsustained ventricular tachycardia): Code(s): I47.29 - Other ventricular tachycardia (3) Paroxysmal atrial fibrillation: Code(s): I48.0 - Paroxysmal atrial fibrillation Plan Holter showing no episodes of VT or PAF, had rare PACs and PVCs. Bradycardy 72% of the time. Lowest rate of 41 bpm. Reports no symptoms. Echocardiogram showed EF of 60-65%. Echocardiogram back in 01/2023 showed EF of 49%. On eliquis with no bleeding conerns. Signs of bleeding reviewed. On amiodarone for rhythm control. Coding Level of Care Code Est Pt Level 3 (22926) Diagnoses Heart failure with reduced ejection fraction I50.20 NSVT (nonsustained ventricular tachycardia) I47.29 Paroxysmal atrial fibrillation I48.0 CPT Codes EKG - CPT: 11449-[id number], Complete ([id number])
== END 2023-12-24 15:13 | disposition home or self-care (01) ==
PROVIDERS: PCP Nurse Practitioner Family; Visit Provider Nurse Practitioner
DX: I50.20 Unspecified systolic (congestive) heart failure (principal); I47.29 Other ventricular tachycardia; I48.0 Paroxysmal atrial fibrillation
CPT/HCPCS: 93010; 99213

== ENCOUNTER → 2023-12-24 14:21 | Outpatient (BNVA) | payer MEDICARE, SELFPAY | PROVIDERS: PCP Nurse Practitioner Family; Visit Provider Nurse Practitioner | DX: I50.20 Unspecified systolic (congestive) heart failure (principal); I48.0 Paroxysmal atrial fibrillation; I47.29 Other ventricular tachycardia | CPT/HCPCS: 93005; 99212 ==

== ENCOUNTER 2024-01-08 14:12 | Outpatient (AMB) | payer MEDICARE, SELFPAY ==
--- NOTE | 2024-01-08 14:24 | MHC.PC.OV ---
Vital Signs 01/08/24 14:26 Height 5 ft 6 in Weight 175 lb 6 oz BMI 28.3 BP 120/72 Blood Pressure Location Lt brachial Position Sitting Pulse 64 Pulse Source Pulse Oximeter Pulse Oximetry (%) 97 Oxygen Delivery Method Room Air Intake Visit Reasons: DM, HF, COPD, 3 month follow up Intake Note: Patient is here to follow up on DM, HF, COPD and ANIYAH from [facility] Oil Well Service Unit Operator Required: Yes Oil Well Service Unit Operator Language: Inspector Repairer Name: Stacy (daughter) Information Interpreted: non-clinical & clinical Supervisor Prep: Present Accompanied by: Daughter Allergies No Known Allergies Allergy (Verified 01/08/24 15:12) Medication List - Last Reconciled 01/08/24 by Adonay Xiong MD albuterol sulfate 90 mcg/actuation 2 puffs inhalation Q4-6H PRN amiodarone 200 mg PO DAILY apixaban (Eliquis) 5 mg PO BID blood sugar diagnostic (CorMed[employer]uch Ultra Test strips) test once per day blood-glucose meter (3Scan Ultra2 Meter) check sugar once daily bupropion HCl (smoking deter) 150 mg PO BID carvedilol 6.25 mg (2 x 3.125 mg) PO BID cholecalciferol (vitamin D3) 1,250 mcg PO QWEEK 12 weeks empagliflozin (Jardiance) 10 mg PO DAILY furosemide 40 mg See Protocol PO DAILY gabapentin 300 mg PO TID lancets (SocialGOTouch UltraSoft 2 Lancet) test once daily memantine 14 mg PO DAILY 30 days miscellaneous medical supply 1 ea miscellaneous DAILY miscellaneous medical supply 1 ea miscellaneous DAILY miscellaneous medical supply 1 ea miscellaneous ONCE miscellaneous medical supply 1 ea miscellaneous ONCE sacubitril-valsartan 49-51 mg (Entresto) 1 tab See Protocol PO BID spironolactone 25 mg PO DAILY Tobacco use date assessed: 01/08/24 Fall risk assessment: No Falls in past year Last assessed Fall Risk: 01/08/24 Dental Screening Dental Screen Date: 01/08/24 Did you have a dental visit in the last 12 months?: No Did you have a dental problem in the last 6 months where you did not have access to dental care?: No Was dental information given to patient?: No HPI DM, HF, COPD, 3 month follow up HPI Details 63-year-old male presents to the office to discuss his medical problems. I will be assuming his care as his provider has left the practice. [facility] Medical History (Updated 01/08/24 @ 15:15 by Adonay Xiong MD) Atrial fibrillation COPD (chronic obstructive pulmonary disease) Biventricular congestive heart failure Acute on chronic systolic and diastolic heart failure, NYHA class 3 History of congestive heart failure Accelerated essential hypertension Surgical History History of open heart surgery Family History Mother Diabetes Breast cancer Hypertension Father Diabetes Hypertension Family/Other Mental health disorder Substance use disorder Social History Household Members: Children Household Members Other:: daughter Housing: Apartment Do you presently have visiting nurse or other home services: No Alcohol intake: former Patient Tobacco Use Status: Former Tobacco user Tobacco use type: Cigarette Cigarettes Per Day: 7 e-Cigarette/Vaping Use: Never Used Second Hand Smoke Exposure: Yes service: No Current occupational status: unemployed Cognitive needs: Yes (cane) Hearing needs: No Vision needs: Yes (Glasses) Questionnaire PHQ-9 Over the last 2 weeks, how often have you been bothered by any of the following problems? 1. Little interest or pleasure in doing things: not at all 2. Feeling down, depressed, or hopeless: not at all 3. Trouble falling or staying asleep, or sleeping too much: not at all 4. Feeling tired or having little energy: not at all 5. Poor appetite or overeating: not at all 6. Feeling bad about yourself - or that you are a failure or have let yourself or your family down: not at all 7. Trouble concentrating on things, such as reading the newspaper or watching television: not at all 8. Moving or speaking so slowly that other people could have noticed. Or the opposite - being so fidgety or restless that you have been moving around a lot more than usual: not at all 9. Thoughts that you would be better off or of hurting yourself in some way: not at all Total score: 0 Depression Screening Interpretation: Negative Depression Screening Done: Yes Source: Developed by Drs. Russ Stearns, Janice Guadalupe, Patricio Rodriguez and colleagues, with an educational lety from [employer]. Thrive Questionnaire Date Thrive assessed: 01/08/24 I am a: Patient What is your living situation today?: I have a steady place to live Within the past 12 months, did the food you bought not last and you didn't have the money to get more?: Never true Within the past 12 months, did you worry whether your food would run out before you got money to buy more?: Never true Do you have trouble paying for medicines?: No Do you have trouble getting transportation to medical appointments?: No Do you have trouble paying your heating and electricity bill?: No Do you have trouble taking care of your child, family member or friend?: No Do you have trouble with day-to-day activities such as bathing, preparing meals, shopping, managing finances, etc.?: No Are you currently unemployed and looking for a job?: No Are you interested in more education?: No Currently or been in a relationship where the following occur: no concerns reported THRIVE Score: 0 AUDIT C Alcohol Use Questionnaire (AUDIT-C) 1. How often do you have a drink containing alcohol?: Never Total Score: 0 TC-7 AMB Questionnaire TC-7 Date TC - 7 assessed: 01/08/24 Feeling nervous, anxious, or on edge: 0 = Not at all Not being able to stop or control worryin = Not at all Worrying too much about different things: 0 = Not at all Trouble relaxin = Not at all Being so restless that it is hard to sit still: 0 = Not at all Becoming easily annoyed or irritable: 0 = Not at all Feeling afraid as if something awful might happen: 0 = Not at all Total TC-7 score (0-4 normal; 5-9 mild; 10-14 moderate; 15-21 severe): 0 Source: Developed by Drs. Russ Stearns, Janice Guadalupe, Patricio Rodriguez and colleagues, with an educational lety from [employer]. Physical exam (Primary Care) Vital Signs: Last Vital Signs Pulse 64 01/08/24 14:26 BP 120/72 01/08/24 14:26 Pulse Ox 97 01/08/24 14:26 Oxygen Delivery Method Room Air 01/08/24 14:26 BMI result Body Mass Index 28.3 Tobacco/Smoking Status: Tobacco use Status Tobacco use date assessed 01/08/24 01/08/24 14:31 Patient Tobacco Use Status Former Tobacco user 01/08/24 14:31 Tobacco use type Cigarette 01/08/24 14:31 e-Cigarette/Vaping Use Never Used 01/08/24 14:31 PHQ-9: PHQ-9 Score PHQ-9: Total score 0 01/08/24 14:31 Depression Screening Interpretation: Negative Thrive Assessment: Date of Thrive Assessment Date Thrive assessed 01/08/24 01/08/24 14:31 Currently or been in a relationship where the following occur: no concerns reported Advance Care Planning discussion: Exists, not on file Date of discussion: 01/08/24 Who was present: Patient and daughter Forms completed: Health Care Proxy Actual minutes spent: 5 Const General: cooperative and healthy appearing Nutritional Appearance: well nourished Orientation/consciousness: patient oriented x3 Limitations: no limitations HENMT Head: Yes normal to inspection Eyes General: appearance normal, both eyes and all related structures Neck Neck: Yes normal visual inspection Chest Chest palpation & inspection: normal palpation of entire chest wall Resp Effort & Inspection: normal respiratory effort Cardio Other: For over 6 systolic murmur heard best over the parasternal area. Neuro General: patient oriented x3 Assessment and Plan Assessment & Plan (1) Memory loss or impairment: Code(s): R41.3 - Other amnesia Plan: Patient is seeing a neurologist who started him on memantine. (2) Atrial fibrillation: Code(s): I48.91 - Unspecified atrial fibrillation Plan: Rate is well controlled. (3) COPD (chronic obstructive pulmonary disease): Code(s): J44.9 - Chronic obstructive pulmonary disease, unspecified Plan: Condition is stable. (4) Type 2 diabetes mellitus: Code(s): E11.9 - Type 2 diabetes mellitus without complications Plan: A1c is in range. Continue medications at same dosage. Coding Level of Care Code Est Pt Level 4 (93303) Diagnoses Memory loss or impairment R41.3 Atrial fibrillation I48.91 COPD (chronic obstructive pulmonary disease) J44.9 Type 2 diabetes mellitus E11.9 Additional Codes Vital Signs *Quality* - Advance Care Planning discussion: Exists, not on file ([id number])
[2024-01-08 14:26] VITALS: BP 120/72; PULSE 64; O2SAT 97; BMI 28.3
== END 2024-01-08 15:11 | disposition home or self-care (01) ==
PROVIDERS: PCP Internal Medicine; Visit Provider Internal Medicine
DX: R41.3 Other amnesia (principal); I48.91 Unspecified atrial fibrillation; J44.9 Chronic obstructive pulmonary disease, unspecified; E11.9 Type 2 diabetes mellitus without complications; Z00.00 Encounter for general adult medical examination without abnormal findings
CPT/HCPCS: 1123F; 99214

== ENCOUNTER 2024-03-24 09:25 | Outpatient (AMB) | payer MEDICARE, SELFPAY ==
[2024-03-24 09:29] VITALS: BP 140/74; PULSE 52; O2SAT 97; BMI 28.9
--- NOTE | 2024-03-24 09:30 | AM.OFFVISMDC ---
Intake Vital Signs 03/24/24 09:29 Height 5 ft 6 in Weight 179 lb 0.8 oz BMI 28.9 BP 140/74 H Blood Pressure Location Lt brachial Position Sitting Pulse 52 Pulse Source Pulse Oximeter Pulse Oximetry (%) 97 Oxygen Delivery Method Room Air Intake Visit Reasons: [facility] [id number] Allergies No Known Allergies Allergy (Verified 03/24/24 10:21) Medication List - Last Reconciled 03/24/24 by Reina Polanco PA-C albuterol sulfate 90 mcg/actuation 2 puffs inhalation Q4-6H PRN amiodarone 200 mg PO DAILY apixaban (Eliquis) 5 mg PO BID blood sugar diagnostic (Sensulinuch Ultra Test strips) test once per day blood-glucose meter (Sensulinuch Ultra2 Meter) check sugar once daily bupropion HCl (smoking deter) 150 mg PO BID carvedilol 6.25 mg (2 x 3.125 mg) PO BID cholecalciferol (vitamin D3) 1,250 mcg PO QWEEK 12 weeks empagliflozin (Jardiance) 10 mg PO DAILY furosemide 40 mg PO DAILY gabapentin 300 mg PO TID lancets (Sensulinuch UltraSoft 2 Lancet) test once daily memantine 14 mg PO DAILY 30 days miscellaneous medical supply 1 ea miscellaneous DAILY miscellaneous medical supply 1 ea miscellaneous DAILY miscellaneous medical supply 1 ea miscellaneous ONCE miscellaneous medical supply 1 ea miscellaneous ONCE sacubitril-valsartan 49-51 mg (Entresto) 1 tab See Protocol PO BID HPI [facility] [id number] HPI Details 64-year-old male with past history of COPD, diabetes mellitus, heart failure with reduced ejection fraction, AFib, obstructive sleep apnea, and memory impairment last seen by Dr. Xiong 01/08/2024 coming in for annual well visit.? In review of the notes, the patient was seen by Cardiology for 12/24/2023 for heart failure and AFib, appears to be stable at this time. Echo showed an ejection fraction of 60-65% and the Holter monitor was negative. Patient presents today with his daughter who is his primary advanced quality engineer. She mentions she is concerned that his memory is worsening, he is followed by Neurology who recently increased his memantine. She states he had a fall 2 weeks ago which was witnessed on cameras that showed him tripping and falling without head strike or loss of consciousness. When asked about the fall patient could not recall. Denies any episodes of dizziness or syncope. Patient is not up-to-date with Cologuard testing, lung cancer screening, or AAA screening. There are no other concerns today. FORMERLY [facility], [facility] Medical History (Updated 03/24/24 @ 10:34 by Reina Polanco PA-C) Smoking trying to quit Atrial fibrillation COPD (chronic obstructive pulmonary disease) Biventricular congestive heart failure Acute on chronic systolic and diastolic heart failure, NYHA class 3 History of congestive heart failure Accelerated essential hypertension Surgical History History of open heart surgery Family History Mother Diabetes Breast cancer Hypertension Father Diabetes Hypertension Family/Other Mental health disorder Substance use disorder Social History Household Members: Children Household Members Other:: daughter Housing: Apartment Do you presently have visiting nurse or other home services: No Alcohol intake: former Patient Tobacco Use Status: Former Tobacco user Tobacco use type: Cigarette Cigarettes Per Day: 7 e-Cigarette/Vaping Use: Never Used Second Hand Smoke Exposure: Yes service: No Current occupational status: unemployed Cognitive needs: Yes (cane) Hearing needs: No Vision needs: Yes (Glasses) Questionnaire Medicare Wellness Checkup [age] What gender do you identify with?: male During the past 4 weeks, how much have you been bothered by emotional problems such as feeling anxious, depressed, irritable, sad or downhearted, and blue?: not at all During the past 4 weeks, has your physical & emotional health limited your social activities with family, friends, neighbors, or groups?: not at all During the past 4 weeks, how much bodily pain have you generally had?: very mild pain During the past 4 weeks, was someone available to help you if you needed & wanted help?: yes, as much as I wanted During the past 4 weeks, what was the hardest physical activity you could do for at least 2 minutes?: light Can you get to places out of walking distance without help? (For eg., can you travel alone on buses, taxis or drive your car?): No Can you go shopping for groceries or clothes without someone's help?: No Can you prepare your own meals?: No Can you do your housework without help?: No Because of any health problems, do you need the help of another person with your personal care needs such as eating, bathing, dressing or getting around the house?: No Can you handle your own money without help?: No During the past 4 weeks, how would you rate your health in general?: good During the past 4 weeks how have things been going for you?: very well; could hardly better Are you having difficulties driving your car?: not applicable, I don't use a car Do you always fasten your seat belt when you are in a car?: yes, usually During past 4 weeks, have you been bothered by the following: never: Trouble eating well? and Problems using the telephone? and seldom: Falling or dizzy when standing up, Teeth or denture problems? and Tiredness or fatigue? Have you fallen 2 or more times in the past year?: Yes Are you afraid of falling?: Yes Are you a smoker?: no During the past 4 weeks, how many drinks of wine, beer, or other alcoholic beverages did you have?: no alcohol at all Do you exercise for about 20 minutes 3 or more times a week?: no, I usually do not exercise this much Have you been given information to help with the following?: yes: Hazards in your house that might hurt you? and yes: Keeping track of your medications? How often do you have trouble taking medicines the way you have been told to take them?: I always take medicine as prescribed How confident are you that you can control & manage most of your health problems?: very confident What is your race?: or origin or descent Activity of Daily Living Bathing - sponge bath, tub bath or shower: receives help in bathing only one body part (such as back or leg) Dressing - getting clothes from closets & drawers, including inner/outer garments & fasteners.: gets clothes & gets dressed without help, except for help tying shoes Toileting - going to the 'toilet room' for urine/bowel elimination & cleaning self/arranging clothes: goes to toilet room, cleans self, arranges clothes without help Transfer: moves in & out of bed and chair without help (may use support object) Continence: controls urination/bowel movements completely by self Feeding: feeds self without help Total Score: 0 Information obtained from: informant (From both daughter and patient) Using telephone: independent Traveling: dependent Shopping: dependent Preparing meals: dependent Housework: dependent Taking medicine: needs assistance Managing money: dependent PHQ-9 Over the last 2 weeks, how often have you been bothered by any of the following problems? 1. Little interest or pleasure in doing things: not at all 2. Feeling down, depressed, or hopeless: not at all 3. Trouble falling or staying asleep, or sleeping too much: not at all 4. Feeling tired or having little energy: not at all 5. Poor appetite or overeating: not at all 6. Feeling bad about yourself - or that you are a failure or have let yourself or your family down: not at all 7. Trouble concentrating on things, such as reading the newspaper or watching television: not at all 8. Moving or speaking so slowly that other people could have noticed. Or the opposite - being so fidgety or restless that you have been moving around a lot more than usual: not at all 9. Thoughts that you would be better off or of hurting yourself in some way: not at all Total score: 0 Depression Screening Interpretation: Negative Depression Screening Done: Yes Source: Developed by Drs. Russ Stearns, Janice Guadalupe, Patricio Rodriguez and colleagues, with an educational lety from [employer]. Review of Systems Const Denies body aches, Denies fever(s), Denies headache(s) and Denies weakness Eyes Reports no additional complaints ENT Denies dizziness, Denies facial pain, Denies headache(s), Denies nasal congestion and Denies odynophagia Card Denies chest pain, Denies syncope, Denies rapid heart rate, Denies lightheadedness and Denies dyspnea Resp Denies cough and Denies dyspnea GI Denies constipation, Denies diarrhea, Denies nausea, Denies odynophagia and Denies vomiting Reports no additional complaints Musc Reports no additional complaints Skin/Breast Reports system reviewed and no additional complaints, except as documented Neuro Denies dizziness, Denies syncope, Denies headache(s) and Denies weakness Physical Exam Vital Signs: Last Vital Signs Pulse 52 03/24/24 09:29 BP 140/74 H 03/24/24 09:29 Pulse Ox 97 03/24/24 09:29 Oxygen Delivery Method Room Air 03/24/24 09:29 BMI result Body Mass Index 28.9 Const General: alert and awake Orientation/consciousness: patient oriented x3 HEENT Head: Yes normocephalic Ears: external ears normal and TM's normal bilaterally Face and sinus: Yes normal facial exam Mouth: Normal oral and palatal mucosa present, tongue normal, oropharynx normal and moist mucous membranes Eyes Visual Resendiz: normal visual resendiz by confrontation Conjunctivae: conjunctivae normal Pupils: Equal, round and reactive pupils present EOM: EOMs intact bilaterally Neck Neck: Yes full ROM and No lymphadenopathy Chest Chest palpation & inspection: normal inspection of the chest Resp Effort & Inspection: normal respiratory effort and no audible wheezes Auscultation: clear to auscultation bilaterally, no crackles, no rales, no rhonchi, no wheezes and lung sounds not diminished Cardio Rate: regular rate Rhythm: regular rhythm Heart sounds: Murmur heart sound present (Harsh systolic murmur - chronic) Peripheral pulses: radial pulses present and dorsalis pedis present GI Inspection: Yes normal to inspection Palpation (GI): Soft to palpation, nontender, no guarding, not rigid and no masses Auscultation: normal bowel sounds Rectal Exam - Male: Yes deferred General: Yes no CVA tenderness Back/Spine/Pelvis Back: no CVA tenderness Skin General skin exam: no rashes or lesions noted Rashes: no rashes Neuro General: patient oriented x3 and gait normal Cranial nerves: Yes Equal, round and reactive pupils present, Yes Midline tongue present and Yes Ability to bilaterally elevate shoulders present Cognition (Neuro): normal cognition Gait exam (Neuro): Normal gait present Motor exam (neuro): 5/5 motor strength present throughout Extrem General: Yes normal to inspection, Yes full ROM and No edema Psych Appearance: grossly normal Mental Status: mental status grossly normal Speech and movement: Normal speech and movement present Affect: normal affect Attitude: cooperative Insight: Fair insight present (Psych) Judgement: Fair judgement present (Psych) Results AMB Hemoglobin A1c AMB Hemoglobin A1c 5.9 % Last Edit by SHERYL Costello on 03/24/24 09:54 Results Reviewed Results Reviewed: Laboratory Last Values Hgb A1c (Clinic) 5.9 % (4.0-6.0) 03/24/24 09:42 Assessment & Plan Assessment & Plan (1) Type 2 diabetes mellitus: Code(s): E11.9 - Type 2 diabetes mellitus without complications Qualifiers: Diabetes mellitus [employer] insulin use: without half-way use Plan: A1c in the office today was 5.9 which is at goal for this patient. Decrease the amount of carbohydrates such as pasta, bread, rice, and potatoes and limit the amount of sweets. Although fruits are generally healthy they should be eaten in moderation as they are still high in sugar. Hemoglobin A1c goal of less than 6.0. Continue on current medication and continue to monitor blood sugars. Patient checks blood sugars regularly and does not have values below 100. (2) Memory loss or impairment: Code(s): R41.3 - Other amnesia Plan: Patient is following with Neurology and on memantine. Recent MRI 10/2023 showed chronic small-vessel changes and volume loss. 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 We will continue following with Neurology next appointment 06/2024. (3) Former smoker: Code(s): Z87.891 - Personal history of nicotine dependence Plan: Patient successfully stopped smoking 07/2023 and has not had a cigarette since. Was using Wellbutrin to help with smoking cessation and will be weaning down now that patient has stopped smoking. Doing well and does not report any cravings. We will enroll patient in annual lung cancer screening and refer for AAA ultrasound. (4) Paroxysmal atrial fibrillation: Code(s): I48.0 - Paroxysmal atrial fibrillation Plan: Seen by cardiology for 12/24/2023, considered stable. Holter monitor was negative for any episodes of AFib or SVT. Continue on amiodarone and Eliquis. No issues with bleeding reported at this time. (5) Heart failure with reduced ejection fraction: Code(s): I50.20 - Unspecified systolic (congestive) heart failure Plan: Seen by cardiology for 12/24/2023, considered stable. On last echo ejection fraction was found to be 60-65% which is markedly improved from last echo. Echo was otherwise unremarkable with no evidence of valvular disease. Cardiology is aware of heart murmur and has been monitoring, patient reports this is chronic. Will continue to follow up with Cardiology next appointment 06/2024. (6) COPD (chronic obstructive pulmonary disease): Code(s): J44.9 - Chronic obstructive pulmonary disease, unspecified Plan: Denies any symptoms shortness of breath or chest tightness, continue on albuterol as needed. Uses inhaler infrequently. (7) Peripheral neuropathy: Code(s): G62.9 - Polyneuropathy, unspecified Plan: Patient has chronic peripheral neuropathy and uses gabapentin with good relief. Dose of gabapentin was increased in June 2023 to 3 times a day. This prescription was refilled at this visit. Patient was requesting an increase in dosage, patient to trial gabapentin as prescribed 3 times daily and monitor breakthrough symptoms. Advised patient that gabapentin can sometimes be sedating and with history of memory impairment and occasional falls weary of increasing dosage at this time. Patient and daughter agree to this plan and will follow up at next appointment. Plan Thank you for allowing me to participate in the care of this patient. I personally spent 35 minutes reviewing, examining and charting on this patient. Orders: Orders AMB Hemoglobin A1c Today E11.9 - Type 2 diabetes mellitus without complications US abdominal aortic aneurysm Today Z87.891 - Personal history of nicotine dependence Prostate Specific Antigen Scr Today Z00.00 - Encounter for general adult medical examination without abnormal findings Referrals Lung Cancer Screening Referral Z87.891 - Personal history of nicotine dependence Ophthalmology Referral E11.9 - Type 2 diabetes mellitus without complications Cologuard Test Z12.11 - Encounter for screening for malignant neoplasm of colon, Z12.12 - Encounter for screening for malignant neoplasm of rectum Medications: Refilled gabapentin 300 mg PO TID 90 caps 3RF Discontinued spironolactone Discontinued Reason: Patient no longer taking 25 mg PO DAILY 90 tabs 1RF Quality Reporting (2019) Depression/Bipolar (159/160/161/177) PHQ-9: Total score: 0 Coding Level of Care Code Medicare First (G0438) Diagnoses Type 2 diabetes mellitus E11.9 Diabetes mellitus half-way insulin use: without superintendent [employer] use Memory loss or impairment R41.3 Former smoker Z87.891 Paroxysmal atrial fibrillation I48.0 Heart failure with reduced ejection fraction I50.20 COPD (chronic obstructive pulmonary disease) J44.9 Peripheral neuropathy G62.9 CPT Codes Advance Care Planning - Advance Care Planning discussion: On file, no changes ([id number]) Advance Care Planning - Time spent: 1-15 minutes, on File ([id number]) Advance Care Planning Advance Care Planning discussion: On file, no changes Date of discussion: 03/24/24 Forms completed: Health Care Proxy and [facility]OL[facility] (sent home to fill out ) Time spent: 1-15 minutes, on File Did not discuss due to Cultural/Spiritual beliefs: No
== END 2024-03-24 10:21 | disposition home or self-care (01) ==
PROVIDERS: PCP Internal Medicine
DX: Z00.00 Encounter for general adult medical examination without abnormal findings (principal); E11.42 Type 2 diabetes mellitus with diabetic polyneuropathy; I48.0 Paroxysmal atrial fibrillation; I50.20 Unspecified systolic (congestive) heart failure; J44.9 Chronic obstructive pulmonary disease, unspecified; R41.3 Other amnesia; Z87.891 Personal history of nicotine dependence
CPT/HCPCS: 1123F; 83036; G0438; G0439

== ENCOUNTER 2024-04-28 08:21 | Outpatient (REF) | payer MEDICARE, SELFPAY ==
--- NOTE | ~2024-04-28 | US_ITS ---
EXAMINATION: US RETROPERITONEAL LIMITED (AORTA) CLINICAL INFORMATION: History of nicotine dependence. Screening. COMPARISON: CT chest 12/06/2022. TECHNIQUE: Toribio-scale, color Doppler and spectral Doppler evaluation of the abdominal aorta. FINDINGS: The aorta is normal. The measurements of the aorta in maximum AP and transverse dimensions respectively are as follows: Proximal: 2.7 x 2.8 cm. Mid: 2.3 x 2.1 cm. Distal: 1.9 x 2.3 cm. PSV: 74.6 cm/s. The measurements of the common iliac arteries in maximum AP and TRV dimensions are as follows: Right Common Iliac Artery: 1.3 x 1.0 cm. Left Common Iliac Artery: 1.2 x 1.0 cm. US/US aorta IMPRESSION: No evidence of abdominal aortic aneurysm.
== END 2024-04-28 08:22 | disposition home or self-care (01) ==
LOC: HO.US 08:21
PROVIDERS: PCP Internal Medicine
DX: Z87.891 Personal history of nicotine dependence (principal)
CPT/HCPCS: 76775

== ENCOUNTER 2024-06-23 11:09 | Outpatient (AMB) | payer MEDICARE, SELFPAY ==
[2024-06-23 11:13] VITALS: BMI 28.9
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
== END 2024-06-23 11:38 | disposition home or self-care (01) ==
PROVIDERS: PCP Nurse Practitioner Family; Visit Provider Psychiatry & Neurology Neurology
DX: R41.3 Other amnesia (principal)
CPT/HCPCS: 99214; G2211

== ENCOUNTER → 2024-06-23 11:09 | Outpatient (BNVA) | payer MEDICARE, SELFPAY | PROVIDERS: PCP Nurse Practitioner Family; Visit Provider Psychiatry & Neurology Neurology | DX: R41.3 Other amnesia (principal); I11.0 Hypertensive heart disease with heart failure; I50.9 Heart failure, unspecified | CPT/HCPCS: 99212 ==

== ENCOUNTER 2024-06-24 13:36 | Outpatient (AMB) | payer MEDICARE, SELFPAY ==
[2024-06-24 13:39] VITALS: BP 140/80; PULSE 55; BMI 28.8
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
== END 2024-06-24 14:00 | disposition home or self-care (01) ==
PROVIDERS: PCP Nurse Practitioner Family; Visit Provider Internal Medicine Cardiovascular Disease
DX: I50.32 Chronic diastolic (congestive) heart failure (principal); I48.0 Paroxysmal atrial fibrillation; Q21.0 Ventricular septal defect; Q25.42 Hypoplasia of aorta
CPT/HCPCS: 93010; 99214

== ENCOUNTER → 2024-06-24 13:36 | Outpatient (BNVA) | payer MEDICARE, SELFPAY | PROVIDERS: PCP Nurse Practitioner Family; Visit Provider Internal Medicine Cardiovascular Disease | DX: I50.32 Chronic diastolic (congestive) heart failure (principal); I48.0 Paroxysmal atrial fibrillation; Q21.0 Ventricular septal defect; Q25.42 Hypoplasia of aorta; Z87.891 Personal history of nicotine dependence | CPT/HCPCS: 93005; 99212 ==

== ENCOUNTER 2024-07-02 09:22 | Outpatient (AMB) | payer MEDICARE, SELFPAY ==
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
== END 2024-07-02 10:10 | disposition home or self-care (01) ==
PROVIDERS: PCP Internal Medicine; Visit Provider Physician Assistant Medical
DX: Z87.891 Personal history of nicotine dependence (principal)
CPT/HCPCS: G0296

== ENCOUNTER 2024-07-02 09:45 | Outpatient (REF) | payer MEDICARE, SELFPAY ==
--- NOTE | ~2024-07-02 | CT_ITS ---
EXAMINATION: CT LOW-DOSE SCREENING CHEST WITHOUT CONTRAST CLINICAL INFORMATION: Personal history of nicotine dependence. The patient has a 52 pack-year history of smoking, having quit 1 year ago. COMPARISON: CT chest 12/06/2022. X-ray chest 12/05/2022. TECHNIQUE: Multidetector volumetric CT imaging of the chest is performed on a Siemens SOMATOM Definition scanner without contrast using low dose technique. Additional 2D coronal and sagittal reformatted images and axial 3D maximum intensity projection (MIP) images are generated on the CT workstation. This CT examination was performed using dose optimization techniques as appropriate, variously including the following: *Automated exposure control *Adjustment of mA and/or kV according to patient size (this includes techniques or standardized protocols for targeted exams where dose is matched to indication/reason for exam; i.e. extremities or head) *Use of iterative reconstruction technique TOTAL EXAM DLP: 49 mGy-cm. CTDIvol: 1.63 mGy. FINDINGS: PULMONARY NODULES: No suspicious pulmonary nodules. There is a single tiny flat periseptal 4 mm nodular density consistent with an intrapulmonary lymph node (5:236). Extensive respiratory artifact was present at the time of the prior study not allowing for accurate comparisons. LUNGS: There is evidence of a partial pneumonectomy with a suture line seen in the left upper lobe of lung anteriorly. Lungs bilaterally symmetrically expanded. There is mild emphysema and bronchial thickening without bronchiectasis. No effusion or pneumothorax. Previously seen small right pleural effusion has resolved. Central airways patent. MEDIASTINUM: No mediastinal, hilar or axillary adenopathy or free fluid collection. CORONARY ARTERY CALCIFICATION: Minimal. THYROID GLAND: Unremarkable to the extent seen. CARDIOVASCULAR STRUCTURES: Heart size has significantly decreased since the prior study. Aortic and heart size now normal. No pericardial effusion. CHEST WALL/AXILLA: Unremarkable. UPPER ABDOMEN: Included portions of the solid organs in the upper abdomen unremarkable on noncontrast imaging. OSSEOUS STRUCTURES: No suspicious focal findings. CT/CT lung screening IMPRESSION: 1. No evidence of pulmonary malignancy. 2. Status post partial left pneumonectomy. 3. Mild emphysema and bronchial thickening. ASSESSMENT: 1. Lung-RADS Category 2: Benign appearance or behavior of nodules. N/A 2. Lung-RADS Category S: Negative. There are no clinically significant or potentially clinically significant findings not related to the lungs requiring urgent additional evaluation. RECOMMENDATION: Continued routine annual low-dose CT lung screening in 1 year is recommended. An order for CT CHEST LOW DOSE CANCER SCREENING ([id number]) can be placed. Electronically signed by: Jorge Luis Gaines MD 08/19/2024 01:51 PM [facility]
== END 2024-07-02 09:46 | disposition home or self-care (01) ==
LOC: HO.CT 09:45
PROVIDERS: PCP Internal Medicine; Visit Provider Physician Assistant Medical
DX: Z12.2 Encounter for screening for malignant neoplasm of respiratory organs (principal); Z87.891 Personal history of nicotine dependence
CPT/HCPCS: 71271; G0296

== ENCOUNTER 2024-08-05 14:25 | Outpatient (AMB) | payer MEDICARE, SELFPAY ==
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
[2024-08-05 14:52] VITALS: BP 150/74; PULSE 56; O2SAT 98; BMI 29.8
== END 2024-08-05 16:04 | disposition home or self-care (01) ==
PROVIDERS: PCP Internal Medicine; Visit Provider Internal Medicine
DX: E11.9 Type 2 diabetes mellitus without complications (principal)

== ENCOUNTER → 2024-08-05 14:25 | Outpatient (BNVA) | payer MEDICARE, SELFPAY | PROVIDERS: PCP Internal Medicine; Visit Provider Internal Medicine | DX: I48.0 Paroxysmal atrial fibrillation (principal); E11.9 Type 2 diabetes mellitus without complications | CPT/HCPCS: 83036; 99212 ==

== ENCOUNTER 2025-02-03 13:45 | Outpatient (AMB) | payer MEDICARE, SELFPAY ==
--- OUTSIDE RECORDS SUMMARY | 2025-02-03 13:54 | XMS_ITS | Continuity of Care Document ---
Author Organization [facility] Address [address] [place] [address] Care Team Providers Care Egg Breaker Name Role Phone Unavailable Unavailable Unavailable Advance Directives Directive Yes / No Effective Date File Name No Information Encounters Encounter Description Practice Location Reason(s) For Visit Diagnoses Date Provider Providers Copied on Encounter [facility], [address], [place], [place], [id number], [facility] INPATIENT No Information [phone] No Information Referring Provider: MATTEO Jurado, [address] [facility], [place], [address]. tel:[phone] Family History Family Member Type Diagnosis Age At Onset No Information Payers Payer name Insurance type Covered green party ID Authorsadia junito(s) [facility] [id number] MB [id number] Social History Type Description Quantity Date Captured Comments Sex Male Smoking Status No Information Chief Complaint And Reason For Visit No Information History Of Present Illness Encounter Date Complaint History Of Prese nt Illness No Information Instructions Date Instruction Additional Infor mation No Information Assessments Type Assessment Date No Information
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
[2025-02-03 14:05] VITALS: BP 110/68; PULSE 57; TEMP 36.1; O2SAT 98; BMI 27.8
== END 2025-02-03 16:28 | disposition home or self-care (01) ==
LOC: HO.HMCH 13:46
PROVIDERS: PCP Internal Medicine; Visit Provider Internal Medicine
DX: E11.9 Type 2 diabetes mellitus without complications (principal); I48.0 Paroxysmal atrial fibrillation

== ENCOUNTER → 2025-02-03 13:45 | Outpatient (BNVA) | payer MEDICARE, SELFPAY | PROVIDERS: PCP Internal Medicine; Visit Provider Internal Medicine | DX: E11.9 Type 2 diabetes mellitus without complications (principal); I48.0 Paroxysmal atrial fibrillation | CPT/HCPCS: 83036; 99212 ==

== ENCOUNTER 2025-04-27 07:58 | Outpatient (AMB) | payer MEDICARE, SELFPAY ==
--- OUTSIDE RECORDS SUMMARY | 2018-06-16 20:00 | XMS_ITS | Continuity of Care Document ---
Author Organization [facility] Address [address] [place] [address] Care Team Providers Care Clinical Psychologist Licensed Name Role Phone Unavailable Unavailable Unavailable Advance Directives Directive Yes / No Effective Date File Name No Information Encounters Encounter Description Practice Location Reason(s) For Visit Diagnoses Date Provider Providers Copied on Encounter [facility], [address], [place], [place], [id number], [facility] INPATIENT No Information [id number] No Information Referring Provider: MATTEO Jurado, [address] [facility], [place], [address]. tel:[phone] Family History Family Member Type Diagnosis Age At Onset No Information Payers Payer name Insurance type Covered democrat ID Authorsadia junito(s) [facility] [id number] Social History Type Description Quantity Date Captured Comments Sex Male Smoking Status No Information Chief Complaint And Reason For Visit No Information History Of Present Illness Encounter Date Complaint History Of Prese nt Illness No Information Instructions Date Instruction Additional Infor mation No Information Assessments Type Assessment Date No Information
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
[2025-04-27 08:03] VITALS: BP 136/80; PULSE 52; O2SAT 98; BMI 28.7
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
== END 2025-04-27 08:57 | disposition home or self-care (01) ==
LOC: HO.HSMS 07:59
PROVIDERS: PCP Nurse Practitioner Family; Visit Provider Psychiatry & Neurology Neurology
DX: F03.90 Unspecified dementia, unspecified severity, without behavioral disturbance, psychotic disturbance, mood disturbance, and anxiety (principal)
CPT/HCPCS: 99214

== ENCOUNTER → 2025-04-27 | Outpatient (BNVA) | payer MEDICARE, SELFPAY | PROVIDERS: PCP Nurse Practitioner Family; Visit Provider Psychiatry & Neurology Neurology | DX: R41.3 Other amnesia (principal); I50.20 Unspecified systolic (congestive) heart failure; E11.9 Type 2 diabetes mellitus without complications; Z79.899 Other long term (current) drug therapy | CPT/HCPCS: 99212 ==

== ENCOUNTER 2025-08-03 08:24 | Outpatient (AMB) | payer MEDICARE, SELFPAY ==
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
[2025-08-03 08:40] VITALS: BP 132/70; PULSE 57; TEMP 36.2; O2SAT 98; BMI 27.2
== END 2025-08-03 09:02 | disposition home or self-care (01) ==
LOC: HO.HMCH 08:24
PROVIDERS: PCP Internal Medicine; Visit Provider Internal Medicine
DX: E11.9 Type 2 diabetes mellitus without complications (principal)

== ENCOUNTER → 2025-08-03 08:24 | Outpatient (BNVA) | payer MEDICARE, SELFPAY | PROVIDERS: PCP Internal Medicine; Visit Provider Internal Medicine | DX: E11.9 Type 2 diabetes mellitus without complications (principal) | CPT/HCPCS: 83036; 99212 ==

== ENCOUNTER 2025-08-04 09:09 | Outpatient (REF) | payer MEDICARE, SELFPAY ==
[2025-08-04 10:31] LABS: Hematocrit 50.3 % (42.0-52.0); Hemoglobin 16.4 g/dl (14.0-18.0); Mean Corpuscular HGB Conc 32.6 g/dl (31.0-36.0); Mean Corpuscular Hemoglobin 29.6 pg (27.0-33.0); Mean Corpuscular Volume 90.8 fL (80.0-98.0); NRBC Abs Auto 0.000 X10*3/uL (0.0-0.012); NRBC Pct Auto 0.0 /100WBC (0.0-0.2); Platelet Count 156 X10*3/uL (160-400); Red Blood Count 5.54 X10*6/uL (4.60-5.80); White Blood Count 6.9 X10*3/uL (4.8-10.8)
[2025-08-04 11:16] LABS: Alanine Aminotransferase 14 U/L (0-40); Albumin Level 4.7 g/dL (3.5-5.0); Alkaline Phosphatase 112 U/L (39-117); Anion Gap 13 (12-20); Aspartate Amino Transferase 14 U/L (5-37); Blood Urea Nitrogen 24 mg/dL (9-16); Calcium 9.7 mg/dL (8.4-10.2); Carbon Dioxide 31 mmol/L (22-29); Chloride 104 mmol/L (96-108); Cholesterol 183 mg/dL (<200); Estimated Glomerular Filt Rate > 60; HDL Cholesterol 50 mg/dL (>40); Potassium 4.7 mmol/L (3.3-5.1); Sodium 143 mmol/L (135-145); Total Protein 7.2 g/dL (6.5-8.0); Triglycerides 78 mg/dL (<150)
[2025-08-04 11:33] LABS: Thyroid Stimulating Hormone 0.04 uIU/mL (0.32-4.0)
== END 2025-08-04 09:10 | disposition home or self-care (01) ==
LOC: HO.LAB 09:09
PROVIDERS: PCP Internal Medicine; Visit Provider Internal Medicine
DX: E11.9 Type 2 diabetes mellitus without complications (principal)
CPT/HCPCS: 36415; 80048; 80061; 80076; 83036; 84443; 85027